=== PATIENT | female | born 1965 | race Caucasian/White ===

== ENCOUNTER 2019-03-10 02:19 | Emergency (ER) | payer OTHER ==
[~2019-03-10] VITALS: Ht 157 cm; Wt 124.0 kg
[2019-03-10 02:33] LABS: BASOPHILS # (AUTO) 0.1 10^3/uL (0.0-0.1); BASOPHILS % (AUTO) 1 % (0-10); EOSINOPHILS # (AUTO) 0.3 10^3/uL (0.0-0.3); EOSINOPHILS % (AUTO) 3 % (0-10); HEMATOCRIT 43 % (35-52); HEMOGLOBIN 13.2 G/DL (11.5-16.0); LYMPHOCYTES # (AUTO) 3.9 X 10^3 (1.0-4.0); LYMPHOCYTES % (AUTO) 33 % (12-44); MEAN CORPUSCULAR HEMOGLOBIN 26 PG (25-34); MEAN CORPUSCULAR HGB CONC 31 G/DL (32-36); MEAN CORPUSCULAR VOLUME 84 FL (80-99); MEAN PLATELET VOLUME 9.2 FL (7.4-10.4); MONOCYTES # (AUTO) 0.8 X 10^3 (0.0-1.0); MONOCYTES % (AUTO) 6 % (0-12); NEUTROPHILS # (AUTO) 6.9 X 10^3 (1.8-7.8); NEUTROPHILS % (AUTO) 57 % (42-75); PLATELET COUNT 428 10^3/uL (130-400); RED CELL DISTRIBUTION WIDTH 15.9 % (10.0-14.5)
[2019-03-10] MEDS ORDERED: morphine INJ 10 MG/ML 1ML (SYR OR VIAL) IVP STA ×2 (02:41→04:01)
[2019-03-10] MEDS ORDERED: HEParin DRIP 25000 UNIT/500ML 500 ML IV STA (02:42)
[2019-03-10] MEDS ORDERED: NITROGLYCERIN 2% OINT 1 GM UNIT DOSE PACKET TOP ONE (02:45)
[2019-03-10] MEDS ORDERED: meTOprolol 5 MG/5 ML (LOPRESSOR) VIAL IV ONE (02:45)
[2019-03-10 02:51] LABS: CARBON DIOXIDE 25 MMOL/L (21-32); CHLORIDE 102 MMOL/L (98-107); POTASSIUM 3.9 MMOL/L (3.6-5.0); SODIUM 140 MMOL/L (135-145)
[2019-03-10 02:52] LABS: ALANINE AMINOTRANSFERASE 20 U/L (0-55); ALBUMIN 3.8 GM/DL (3.2-4.5); ALKALINE PHOSPHATASE 109 U/L (40-136); BILIRUBIN,TOTAL < 0.2 MG/DL (0.1-1.0); BUN/CREATININE RATIO 13; CREATININE SERUM 0.86 MG/DL (0.60-1.30); GFR ESTIMATED > 60; GLUCOSE 104 MG/DL (70-105)
--- NOTE | 2019-03-10 02:52 | ED Cardiac General ---
History of Present Illness General Chief Complaint: Chest Pain Stated Complaint: CHEST PAIN Nursing Triage Note: PT COMPLAINING OF CHEST PAIN THAT RADIATES DOWN BOTH ARMS. 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 There are no modifying factors. She took 4 baby aspirin prior to arrival. Pain is similar to that experienced with an MD 2 years ago. She had her right coronary artery stented in [facility]. She took Plavix for a year but finished that course. She is supposed to take losartan for blood pressure but does not. She continues to smoke. Allergies and Home Medications Allergies Coded Allergies: amoxicillin (Verified Allergy, Unknown, 03/10/19) clavulanic acid (Verified Allergy, Unknown, 03/10/19) Patient Home Medication List Home Medication List Reviewed: Yes Review of Systems Review of Systems Constitutional: no symptoms reported EENTM: No Symptoms Reported Respiratory: Shortness of Air Cardiovascular: Chest Pain Gastrointestinal: No Symptoms Reported Genitourinary: No Symptoms Reported Musculoskeletal: no symptoms reported; No back pain Skin: no symptoms reported All Other Systems Reviewed Negative Unless Noted: Yes Past Nalzmdr-Selego-Izfiyj Hx Patient Social History Recent Foreign Travel: No Contact w/Someone Who Travel: No Recent Infectious Disease Expo: No Recent Hopitalizations: No Physical Abuse: No Sexual Abuse: No Mistreated: No Past Medical History Surgeries: Yes Section, Coronary Stent Physical Exam Vital Signs Vital Signs - First Documented 03/10/19 02:19 Temp 36.5 Pulse 100 Resp 22 B/P (MAP) 192/101 (131) Pulse Ox 97 O2 Delivery Room Air Capillary Refill : Less Than 3 Seconds Height, Weight, BMI Height: '" Weight: lbs. oz. kg; 50.00 BMI Method: General Appearance: WD/WN, Moderate Distress, Obese HEENT: PERRL/EOMI, Pharynx Normal Neck: Supple Respiratory: Lungs Clear, Normal Breath Sounds Cardiovascular: Regular Rate, Rhythm, No Edema Gastrointestinal: Non Tender, Soft Extremity: Normal Inspection Neurologic/Psychiatric: Alert, Oriented x3, No Motor/Sensory Deficits, Normal Mood/Affect Skin: Normal Color, Warm/Dry Progress/Results/Core Measures Results/Orders Lab Results Laboratory Tests Test 03/10/19 02:22 Range/Units White Blood Count 12.0 H 4.3-11.0 10^3/uL Red Blood Count 5.08 4.35-5.85 10^6/uL Hemoglobin 13.2 11.5-16.0 G/DL Hematocrit 43 35-52 % Mean Corpuscular Volume 84 80-99 FL Mean Corpuscular Hemoglobin 26 25-34 PG Mean Corpuscular Hemoglobin Concent 31 L 32-36 G/DL Red Cell Distribution Width 15.9 H 10.0-14.5 % Platelet Count 428 H 130-400 10^3/uL Mean Platelet Volume 9.2 7.4-10.4 FL Neutrophils (%) (Auto) 57 42-75 % Lymphocytes (%) (Auto) 33 12-44 % Monocytes (%) (Auto) 6 0-12 % Eosinophils (%) (Auto) 3 0-10 % Basophils (%) (Auto) 1 0-10 % Neutrophils # (Auto) 6.9 1.8-7.8 X 10^3 Lymphocytes # (Auto) 3.9 1.0-4.0 X 10^3 Monocytes # (Auto) 0.8 0.0-1.0 X 10^3 Eosinophils # (Auto) 0.3 0.0-0.3 10^3/uL Basophils # (Auto) 0.1 0.0-0.1 10^3/uL Prothrombin Time 13.0 12.2-14.7 SEC INR Comment 1.0 0.8-1.4 Activated Partial Thromboplast Time 26 24-35 SEC Sodium Level 140 135-145 MMOL/L Potassium Level 3.9 3.6-5.0 MMOL/L Chloride Level 102 98-107 MMOL/L Carbon Dioxide Level 25 21-32 MMOL/L Anion Gap 13 5-14 MMOL/L Blood Urea Nitrogen 11 7-18 MG/DL Creatinine 0.86 0.60-1.30 MG/DL Estimat Glomerular Filtration Rate > 60 BUN/Creatinine Ratio 13 Glucose Level 104 70-105 MG/DL Calcium Level 9.0 8.5-10.1 MG/DL Corrected Calcium 9.2 8.5-10.1 MG/DL Magnesium Level 2.0 1.6-2.4 MG/DL Total Bilirubin < 0.2 0.1-1.0 MG/DL Aspartate Amino Transf (AST/SGOT) 19 5-34 U/L Alanine Aminotransferase (ALT/SGPT) 20 0-55 U/L Alkaline Phosphatase 109 40-136 U/L Myoglobin 23.1 10.0-92.0 NG/ML Troponin I < 0.30 <0.30 NG/ML Pro-B-Type Natriuretic Peptide 217.6 H <75.0 PG/ML Total Protein 7.0 6.4-8.2 GM/DL Albumin 3.8 3.2-4.5 GM/DL My Orders Orders - MUSA CARRERA MD Cbc With Automated Diff (03/10/19 02:23) Magnesium (03/10/19 02:23) Chest 1 View Ap/Pa Only (03/10/19 02:23) Ekg Tracing (03/10/19 02:23) Comprehensive Metabolic Panel (03/10/19 02:23) Protime With Inr (03/10/19 02:23) Partial Thromboplastin Time (03/10/19 02:23) O2 (03/10/19 02:23) Monitor-Rhythm Ecg Trace Only (03/10/19 02:23) Ed Iv/Invasive Line Start (03/10/19 02:23) Troponin I Fs (03/10/19 02:23) Nitroglycerin Ointment (Nitrobid Ointme (03/10/19 02:45) Metoprolol Tartrate Injection (Lopressor (03/10/19 02:45) Morphine Injection (Morphine Injection (03/10/19 02:41) O2 (03/10/19 02:42) Lipid Panel (03/11/19 06:00) Ed Iv/Invasive Line Start (03/10/19 02:42) Heparin Injection (Heparin Injection) (03/10/19 02:45) Heparin Injection (Heparin Injection) (03/10/19 02:45) Heparin Drip 46992 Unit/500ml (Heparin (03/10/19 02:42) Myoglobin Serum (03/10/19 02:22) Heparin (Bolus Per Protocol) (Heparin (B (03/10/19 02:53) Ondansetron Injection (Zofran Injectio (03/10/19 02:54) Heparin (Bolus Per Protocol) (Heparin (B (03/10/19 03:00) Ondansetron Injection (Zofran Injectio (03/10/19 03:15) Labetalol Injection (Normodyne Injection (03/10/19 03:30) Probnp Fs (03/10/19 02:22) Medications Given in ED Current Medications Medications Dose Ordered Sig/Laila Route Start Time Stop Time Status Last Admin Dose Admin Heparin Sodium (Porcine) 5,000 unit UD ONCE IV 03/10/19 03:00 03/10/19 03:02 DC 03/10/19 03:08 5,000 UNIT Labetalol HCl 20 mg ONCE ONCE IV 03/10/19 03:30 03/10/19 03:31 DC 03/10/19 03:20 20 MG Metoprolol Tartrate 10 mg ONCE ONCE IV 03/10/19 02:45 03/10/19 02:46 DC 03/10/19 02:47 10 MG Nitroglycerin 1 inch ONCE ONCE TOP 03/10/19 02:45 03/10/19 02:46 DC 03/10/19 02:47 1 INCH Ondansetron HCl 4 mg ONCE ONCE IVP 03/10/19 03:15 03/10/19 03:16 DC 03/10/19 03:14 4 MG Vital Signs/I&O 03/10/19 02:19 Temp 36.5 Pulse 100 Resp 22 B/P (MAP) 192/101 (131) Pulse Ox 97 O2 Delivery Room Air Blood Pressure Mean: 131 Progress Progress Note : Time: 03:26 Progress Note Feels better after medicine. Pain now 2 out of 10. Blood pressure down to 170/100. Heart rate 70s. Attempted to admit [facility] but they have no beds. Patient then requested only at the [facility] where she had her heart catheter 2 years ago. I spoke to the nursing wastewater treatment plant supervisor who is going to put me in touch with the hospitalist. This was at 315 a.m. Initial ECG Impression Date: Mar 10, 2019 Initial ECG Impression Time: 02:40 Initial ECG Rate: 100 Initial ECG Rhythm: Normal Sinus Initial ECG Intervals: Normal Initial ECG Impression: Nonspecific Changes Initial ECG Comparisson: No Previous ECG Available Comment Main EKG machine was not working accurately. Nurses used older EKG machine. This accounts for the patient discrepancy of June 16, 1996 percent on EKG. EKG tracing was accurate however Departure Impression Primary Impression: Chest pain Additional Impression: Hypertensive crisis Disposition: XFER SHT-TRM HOSP Condition: Improved Admissions Decision to Admit Reason: Admit from ER (General) Decision to Admit/Date: Mar 10, 2019 Time/Decision to Admit Time: 02:52 Transfer Transfer Reason: Exceeds level of care Time Spoke to Accepting Phy: 03:12 Transfer Progress Notes I [facility] MUSA CARRERA MD Mar 10, 2019 02:52
[2019-03-10] MEDS ORDERED: HEParin 1000 UNIT/ML (10ML VIAL) FOR BOLUS ONE (02:53)
[2019-03-10] MEDS ORDERED: ONDANSETRON 4 MG/2 ML (SDV) Z0FRAN ONE (02:54)
[2019-03-10] MEDS ORDERED: HEParin 1000 UNIT/ML (10ML VIAL) FOR BOLUS IV ONE (03:00)
[2019-03-10] MEDS ORDERED: ONDANSETRON 4 MG/2 ML (SDV) Z0FRAN IVP ONE (03:15)
[2019-03-10] MEDS ORDERED: LABETALOL HCL 20 MG/4 ML VIAL IV ONE (03:30)
[2019-03-10 03:46] VITALS: BP 166/98
--- NOTE | 2019-03-10 06:41 | Diagnostic Imaging Report ---
INDICATION: Chest pain. Portable chest 2:41 AM Heart size and pulmonary vascularity are normal. Lungs are clear. There are no effusions or pneumothoraces. IMPRESSION: Negative chest. Dictated by: Dictated on workstation # [id number]
== END 2019-03-10 04:15 | disposition short-term general hospital (02) ==
LOC: ER FS 02:22
DX: R07.9 Chest pain, unspecified (principal); I16.9 Hypertensive crisis, unspecified; I25.2 Old myocardial infarction; Z95.5 Presence of coronary angioplasty implant and graft; Z88.0 Allergy status to penicillin; Z88.1 Allergy status to other antibiotic agents
CPT/HCPCS: 36415; 71045; 80053; 83735; 83874; 83880; 84484; 85025; 85610; 85730; 93041; 96365; 96375; 96376

== ENCOUNTER 2020-06-08 03:28 | Emergency (ER) | payer SELFPAY ==
[~2020-06-08] VITALS: Ht 165 cm; Wt 106.6 kg
[2020-06-08] MEDS ORDERED: RT-ALBUTEROL/IPRATROPIUM 3 ML (DUONEB) VIAL ONE (03:47)
[2020-06-08 03:48] LABS: HEMATOCRIT 39 % (35-52); HEMOGLOBIN 11.7 G/DL (11.5-16.0); MEAN CORPUSCULAR HEMOGLOBIN 23 PG (25-34); MEAN CORPUSCULAR HGB CONC 30 G/DL (32-36); MEAN CORPUSCULAR VOLUME 76 FL (80-99); WHITE BLOOD COUNT 12.1 10^3/uL (4.3-11.0)
[2020-06-08 03:49] LABS: BASOPHILS # (AUTO) 0.1 10^3/uL (0.0-0.1); BASOPHILS % (AUTO) 1 % (0-10); EOSINOPHILS # (AUTO) 0.4 10^3/uL (0.0-0.3); EOSINOPHILS % (AUTO) 3 % (0-10); LYMPHOCYTES # (AUTO) 3.5 X 10^3 (1.0-4.0); LYMPHOCYTES % (AUTO) 29 % (12-44); MEAN PLATELET VOLUME 9.2 FL (7.4-10.4); MONOCYTES # (AUTO) 0.8 X 10^3 (0.0-1.0); MONOCYTES % (AUTO) 7 % (0-12); NEUTROPHILS # (AUTO) 7.3 X 10^3 (1.8-7.8); NEUTROPHILS % (AUTO) 61 % (42-75); PLATELET COUNT 496 10^3/uL (130-400)
[2020-06-08] MEDS: NITROGLYCERIN 0.4 MG SL TABS BTL 25'S SL PRN ×2 (03:51→04:44)
--- NOTE | 2020-06-08 03:51 | ED Chest Pain ---
General Chief Complaint: Chest Pain Stated Complaint: CHEST PAIN Source: patient Exam Limitations: no limitations (MARSHA GATES MD) History of Present Illness Date Seen by Provider: Jun 08, 2020 Time Seen by Provider: 03:35 Initial Comments Patient is a 54-year-old female who presents to the emergency department today with a chief complaint of substernal chest pain. Patient states that her chest pain woke her from sleep approximately 45 minutes prior to arrival. Patient states that she has shortness of breath with it but denies nausea and diaphoresis. Patient states the pain is similar to when she has had an "NSTEMI" in the past. Patient last had a heart attack in March 2019 and then a heart attack 2 years before that in March. Patient states the pain radiates slightly up into her right neck. She is not a diabetic. She does take medications for high blood pressure and Plavix. She states she has had previous DVT in the right lower extremity as well as a clot in one of her stents. Patient denies any recent illnesses such as fever, chills cough or congestion. No nausea vomiting or diarrhea. No urinary complaints. She states she was under a little bit of increased stress this evening as she received the template for her 's carinatone who in February of last year. She states that initially she thought she was just having a panic attack. She currently rates the pain at "a 7 or an 8". All other review of systems reviewed and negative except as stated above. Timing/Duration: 1 hour (45 minutes) Severity/Quality: moderate, aching Location: substernal Radiation: neck (Right side) Activities at Onset: rest (Sleeping) Prior CP/Workup: cardiac cath, heart attack ASA po MICA SPREADER: No NTG SL MICA SPREADER: No Associated Symptoms: shortness of breath (MARSHA GATES MD) Allergies and Home Medications Allergies Coded Allergies: amoxicillin (Verified Allergy, Unknown, 03/10/19) clavulanic acid (Verified Allergy, Unknown, 03/10/19) Home Medications Albuterol Sulfate 1 Puff Puff, 2 PUFF IH Q4H 1 PUFF = 90 MCG Prescribed by: ELLIS NOLAN on 06/08/20 0823 Nitroglycerin 0.4 Mg Tab.subl, 0.4 MG SL UD PRN for CHEST PAIN Prescribed by: ELLIS NOLAN on 06/08/20 0823 Patient Home Medication List Home Medication List Reviewed: Yes (MARSHA GATES MD) Review of Systems Review of Systems Constitutional: see HPI EENTM: No Symptoms Reported Respiratory: SOA With Exertion, SOA at Rest Cardiovascular: Chest Pain Gastrointestinal: No Symptoms Reported Genitourinary: No Symptoms Reported Musculoskeletal: no symptoms reported Skin: no symptoms reported Psychiatric/Neurological: Anxiety (MARSHA GATES MD) All Other Systems Reviewed Negative Unless Noted: Yes (MARSHA GATES MD) Past Rwvcjsp-Kspbam-Mjfrzf Hx Patient Social History Alcohol Use: Denies Use Smoking Status: Current Everyday Smoker Type Used: Cigarettes 2nd Hand Smoke Exposure: No Recent Hopitalizations: No (MARSHA GATES MD) Past Medical History Surgeries: Yes Angioplasty, Section, Coronary Stent Respiratory: Yes Pulmonary Embolism, COPD Cardiac: Yes Hypertension Neurological: No Genitourinary: No Gastrointestinal: No Musculoskeletal: No Endocrine: No HEENT: No Cancer: No Psychosocial: No Integumentary: No Blood Disorders: No (MARSHA GATES MD) Physical Exam Vital Signs Vital Signs - First Documented 06/08/20 06/08/20 03:41 04:37 Temp 36.8 Pulse 90 Resp 20 B/P (MAP) 191/ Pulse Ox 95 O2 Delivery Room Air O2 Flow Rate 2.00 (LUCIANSTELLIS DUMAS DO) Vital Signs Capillary Refill : (MARSHA GATES MD) Height, Weight, BMI Height: '" Weight: lbs. oz. kg; 50.00 BMI Method: General Appearance: WD/WN, Anxious, Mild Distress HEENT: PERRL/EOMI Neck: Normal Inspection Respiratory: No Accessory Muscle Use, Wheezing (Expiratory wheezing noted anteriorly in both upper lung bella), Other (Tachypnea) Cardiovascular: Regular Rate, Rhythm, Normal Peripheral Pulses Gastrointestinal: Normal Bowel Sounds, Non Tender, Soft Extremity: Normal Capillary Refill, Normal Inspection, Normal Range of Motion, Non Tender, No Calf Tenderness, No Pedal Edema Neurologic/Psychiatric: Alert, Oriented x3, No Motor/Sensory Deficits, Normal Mood/Affect Skin: Normal Color, Warm/Dry (MARSHA GATES MD) Progress/Results/Core Measures Results/Orders Lab Results Laboratory Tests Test 06/08/20 03:15 06/08/20 07:25 Range/Units White Blood Count 12.1 H 4.3-11.0 10^3/uL Red Blood Count 5.16 4.35-5.85 10^6/uL Hemoglobin 11.7 11.5-16.0 G/DL Hematocrit 39 35-52 % Mean Corpuscular Volume 76 L 80-99 FL Mean Corpuscular Hemoglobin 23 L 25-34 PG Mean Corpuscular Hemoglobin Concent 30 L 32-36 G/DL Red Cell Distribution Width 19.5 H 10.0-14.5 % Platelet Count 496 H 130-400 10^3/uL Mean Platelet Volume 9.2 7.4-10.4 FL Immature Granulocyte % (Auto) 0 % Neutrophils (%) (Auto) 61 42-75 % Lymphocytes (%) (Auto) 29 12-44 % Monocytes (%) (Auto) 7 0-12 % Eosinophils (%) (Auto) 3 0-10 % Basophils (%) (Auto) 1 0-10 % Neutrophils # (Auto) 7.3 1.8-7.8 X 10^3 Lymphocytes # (Auto) 3.5 1.0-4.0 X 10^3 Monocytes # (Auto) 0.8 0.0-1.0 X 10^3 Eosinophils # (Auto) 0.4 H 0.0-0.3 10^3/uL Basophils # (Auto) 0.1 0.0-0.1 10^3/uL Immature Granulocyte # (Auto) 0.0 0.0-0.1 10^3/uL Sodium Level 137 135-145 MMOL/L Potassium Level 4.1 3.6-5.0 MMOL/L Chloride Level 102 98-107 MMOL/L Carbon Dioxide Level 26 21-32 MMOL/L Anion Gap 9 5-14 MMOL/L Blood Urea Nitrogen 14 7-18 MG/DL Creatinine 0.83 0.60-1.30 MG/DL Estimat Glomerular Filtration Rate > 60 BUN/Creatinine Ratio 17 Glucose Level 139 H 70-105 MG/DL Calcium Level 8.8 8.5-10.1 MG/DL Total Creatine Kinase 68 29-168 U/L Creatine Kinase MB 1.2 <6.6 NG/ML Troponin I < 0.30 < 0.30 <0.30 NG/ML (ELLIS NOLAN DO) Medications Given in ED Current Medications Medications Dose Ordered Sig/Laila Route Start Time Stop Time Status Last Admin Dose Admin Albuterol/ Ipratropium 3 ml STK-MED ONCE .ROUTE 06/08/20 03:47 06/08/20 03:54 DC 06/08/20 03:55 3 ML Nitroglycerin 0.4 mg PRN PRN SL 06/08/20 03:45 06/08/20 09:04 DC 06/08/20 04:44 0.4 MG (ELLIS NOLAN DO) Vital Signs/I&O 06/08/20 06/08/20 06/08/20 06/08/20 03:41 03:41 04:37 08:30 Temp 36.8 Pulse 90 82 Resp 20 21 B/P (MAP) 191/ 153/73 Pulse Ox 95 96 95 O2 Delivery Room Air Room Air Nasal Cannula Room Air O2 Flow Rate 2.00 (ELLIS NOLAN DO) Progress Progress Note : Time: 04:43 Progress Note Patient reevaluated after basic laboratory studies have been obtained. She states that her pain is "a 3 or a 4" at this point. Patient will be given another nitro. Initial troponin is negative as expected. Patient arrived at about 330 this morning and will need repeat troponin at 730. Patient does not want to be transferred to [place] at this time she would rather wait and see if her labs become abnormal. We will repeat her EKG in the next hour or so. Vital signs are stable. Her breathing is much improved after a DuoNeb treatment. 0521 Second nitro completely alleviated her pain. resting comfortable. BP 130/67 and pulse [address] Nolan at shift change with second troponin pending for 0730 (MARSHA GATES MD) Progress Note : Progress Note Took over this patient at change of shift with pending repeat troponin. HPI reviewed, patient seen and examined. Patient is pain free at this time and has been since receiving nitroglycerin. Repeat troponin negative. Patient still pain-free. Prescription for nitroglycerin as well as albuterol inhaler as patient has chronic wheezing. She does states she is cut down from 2 packs/day to half a pack per day smoking cigarettes. Courage to follow-up with her PCP in 1 week to discuss getting a different mask for her CPAP but she is not using it. Also advised following up with her lead javascript engineer within 1 to 2 weeks. She agrees and expresses understanding. (ELLIS NOLAN DO) Initial ECG Impression Date: Jun 08, 2020 Initial ECG Impression Time: 03:38 Initial ECG Rate: 91 Initial ECG Rhythm: Normal Sinus Initial ECG Intervals: Normal Initial ECG Impression: Nonspecific Changes EKG : EKG Time: 06:36 Rate: 81 Rhythm: Normal Sinus Intervals: Normal ECG Comparisson: Unchanged ECG Impression: Nonspecific Changes (MARSHA GATES MD) Diagnostic Imaging Diagonstic Imaging: Xray Plain Films/CT/US/NM/MRI: chest Comments Chest x-ray shows cardiomegaly, no infiltrates or effusions. Mildly increased pulmonary vascular congestion (MARSHA GATES MD) Departure Impression Primary Impression: Chest pain Qualified Codes: R07.9 - Chest pain, unspecified Disposition: 01 HOME, SELF-CARE Condition: Improved (no chest pain) Departure-Patient Inst. Decision time for Depature: 08:21 (ELLIS NOLAN DO) Referrals: NO,LOCAL PHYSICIAN (PCP/Family) Primary Care Physician Patient Instructions: Chest Pain (DC) Add. Discharge Instructions: Call your Certified Paralegal, Dr Pryor to arrange a follow up appointment in 1 to 2 weeks. RETURN to the nearest ER for any return of chest pain. See your PCP, Dr Flores regarding your breathing problems and poor fitting CPAP mask. All discharge instructions reviewed with patient and/or family. Voiced understanding. Scripts Nitroglycerin (Nitroglycerin) 0.4 Mg Tab.subl 0.4 MG SL UD PRN for CHEST PAIN, #20 TAB Prov: ELLIS NOLAN DO 06/08/20 Albuterol Sulfate (PROAIR HFA) 1 Puff Puff 2 PUFF IH Q4H, #1 PUFF 1 PUFF = 90 MCG Prov: ELLIS NOLAN DO 06/08/20 MARSHA GATES MD Jun 08, 2020 03:50 ELLIS NOLAN DO Jun 08, 2020 08:23
[2020-06-08] MEDS ORDERED: RT-ALBUTEROL/IPRATROPIUM 3 ML (DUONEB) VIAL INH ONE (04:00)
[2020-06-08 04:05] LABS: BUN/CREATININE RATIO 17; CALCIUM 8.8 MG/DL (8.5-10.1); CARBON DIOXIDE 26 MMOL/L (21-32); CHLORIDE 102 MMOL/L (98-107); CREATININE SERUM 0.83 MG/DL (0.60-1.30); GFR ESTIMATED > 60; GLUCOSE 139 MG/DL (70-105); POTASSIUM 4.1 MMOL/L (3.6-5.0); SODIUM 137 MMOL/L (135-145)
--- NOTE | 2020-06-08 07:50 | Diagnostic Imaging Report ---
HISTORY: Chest pain COMPARISON: 03/10/2019 TECHNIQUE: Frontal view of the chest FINDINGS: Lung volumes are normal. There is haziness in the lung bases which is thought to be due to the overlying soft tissue. No definite consolidation is seen. There is no pleural effusion or pneumothorax. The cardiac silhouette is stable in size. IMPRESSION: 1. No acute pulmonary abnormality is seen. Dictated by: Dictated on workstation # [id number]
[2020-06-08] MEDS ORDERED: NITR0.4T39 SL (08:23)
[2020-06-08] MEDS ORDERED: RT-ALBUINH IH (08:23)
[2020-06-08 08:30] VITALS: BP 153/73
[2020-06-08] MEDS ORDERED: ASPIRIN 81 MG CHEW (CHILDREN'S ASA) PO SCH (09:00)
[2020-06-08 09:09] LABS: CREATINE KINASE MB 1.2 NG/ML (<6.6)
== END 2020-06-08 08:30 | disposition home or self-care (01) ==
LOC: EDUNIT# 03:28 → ER FS 03:33
DX: R07.2 Precordial pain (principal); R06.02 Shortness of breath; R06.2 Wheezing; I10 Essential (primary) hypertension; I25.2 Old myocardial infarction; J44.9 Chronic obstructive pulmonary disease, unspecified; F17.210 Nicotine dependence, cigarettes, uncomplicated; Z86.711 Personal history of pulmonary embolism; Z86.718 Personal history of other venous thrombosis and embolism; Z95.5 Presence of coronary angioplasty implant and graft; Z88.1 Allergy status to other antibiotic agents; Z88.8 Allergy status to other drugs, medicaments and biological substances; Z79.02 Long term (current) use of antithrombotics/antiplatelets; Z79.899 Other long term (current) drug therapy
CPT/HCPCS: 36415; 71045; 80048; 82550; 82553; 84484; 85025; 93005

== ENCOUNTER 2020-07-03 11:59 | Emergency (ER) | payer OTHER ==
[~2020-07-03] VITALS: Ht 154.9 cm; Wt 106.6 kg
[~2020-07-03 11:59] MED LIST: NITR0.4T39 SL; RT-ALBUINH IH
--- NOTE | 2020-07-03 12:08 | ED Cardiac General ---
History of Present Illness General Stated Complaint: CHEST PAIN History of Present Illness Date Seen by Provider: Jul 03, 2020 Time Seen by Provider: 12:03 Initial Comments 54-year-old female with past medical history significant for coronary artery disease presents with onset of chest pain an hour and a half prior to arrival. She took 3 nitroglycerin without relief and stated her pain was still a 10 out of 10. 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 She described it as sharp and in her both right and left chest and shoulders and radiating to her right jaw. Denies recent illness, fever chills, cough or shortness of air. She denies abdominal pain, nausea vomiting. EMS gave morphine in route and on arrival she was pain-free. Allergies and Home Medications Allergies Coded Allergies: amoxicillin (Verified Allergy, Unknown, 03/10/19) clavulanic acid (Verified Allergy, Unknown, 03/10/19) Home Medications Albuterol Sulfate 1 Puff Puff, 2 PUFF IH Q4H 1 PUFF = 90 MCG Prescribed by: ELLIS RAMIREZ on 06/08/20822 Nitroglycerin 0.4 Mg Tab.subl, 0.4 MG SL UD PRN for CHEST PAIN Prescribed by: ELLIS RAMIREZ on 06/08/20822 Patient Home Medication List Home Medication List Reviewed: Yes Review of Systems Review of Systems Constitutional: see HPI; No fever, No malaise, No weakness EENTM: No Symptoms Reported Respiratory: Denies Cough, Denies Shortness of Air, Denies Stridor, Denies Wheezing Cardiovascular: See HPI, Chest Pain (resolved on arrival); Denies Palpitations, Denies Syncope Gastrointestinal: Denies Abdominal Pain, Denies Nausea, Denies Poor Appetite, Denies Vomiting Musculoskeletal: back pain (upper shoulders- resolved); No neck pain; other (Right jaw pain resolved on arrival.) Skin: No change in color Psychiatric/Neurological: Denies Numbness, Denies Paresthesia, Denies Weakness Past Rsjitrn-Mnvbul-Wchjra Hx Past Med/Social Hx: Reviewed Nursing Past Med/Soc Hx Patient Social History Smoking Status: Current Everyday Smoker Type Used: Cigarettes 2nd Hand Smoke Exposure: No Recent Hopitalizations: No Past Medical History Surgeries: Yes Angioplasty, Section, Coronary Stent Respiratory: Yes Pulmonary Embolism, COPD Cardiac: Yes Hypertension Neurological: No Genitourinary: No Gastrointestinal: No Musculoskeletal: No Endocrine: No HEENT: No Cancer: No Psychosocial: No Integumentary: No Blood Disorders: No Physical Exam Vital Signs Vital Signs - First Documented Capillary Refill : Height, Weight, BMI Height: '" Weight: lbs. oz. kg; 39.00 BMI Method: General Appearance: No Apparent Distress, WD/WN HEENT: PERRL/EOMI, Normal ENT Inspection Neck: Normal Inspection, Non Tender, Supple Respiratory: Chest Non Tender, Lungs Clear, Normal Breath Sounds, No Accessory Muscle Use, No Respiratory Distress Cardiovascular: Regular Rate, Rhythm, No Edema, No Gallop, No JVD, Normal Peripheral Pulses Gastrointestinal: Normal Bowel Sounds, No Pulsatile Mass, Non Tender, Soft Extremity: Normal Capillary Refill, Normal Inspection, Non Tender, No Calf Tenderness Neurologic/Psychiatric: Alert, Oriented x3, No Motor/Sensory Deficits, Normal Mood/Affect Skin: Normal Color, Warm/Dry Progress/Results/Core Measures Results/Orders Lab Results Laboratory Tests Test 07/03/20 12:03 07/03/20 13:25 Range/Units White Blood Count 11.6 H 4.3-11.0 10^3/uL Red Blood Count 4.80 4.35-5.85 10^6/uL Hemoglobin 11.0 L 11.5-16.0 G/DL Hematocrit 36 35-52 % Mean Corpuscular Volume 75 L 80-99 FL Mean Corpuscular Hemoglobin 23 L 25-34 PG Mean Corpuscular Hemoglobin Concent 31 L 32-36 G/DL Red Cell Distribution Width 18.7 H 10.0-14.5 % Platelet Count 456 H 130-400 10^3/uL Mean Platelet Volume 9.4 7.4-10.4 FL Immature Granulocyte % (Auto) 0 % Neutrophils (%) (Auto) 61 42-75 % Lymphocytes (%) (Auto) 28 12-44 % Monocytes (%) (Auto) 6 0-12 % Eosinophils (%) (Auto) 3 0-10 % Basophils (%) (Auto) 1 0-10 % Neutrophils # (Auto) 7.1 1.8-7.8 X 10^3 Lymphocytes # (Auto) 3.3 1.0-4.0 X 10^3 Monocytes # (Auto) 0.7 0.0-1.0 X 10^3 Eosinophils # (Auto) 0.3 0.0-0.3 10^3/uL Basophils # (Auto) 0.1 0.0-0.1 10^3/uL Immature Granulocyte # (Auto) 0.0 0.0-0.1 10^3/uL Sodium Level 139 135-145 MMOL/L Potassium Level 4.3 3.6-5.0 MMOL/L Chloride Level 103 98-107 MMOL/L Carbon Dioxide Level 26 21-32 MMOL/L Anion Gap 10 5-14 MMOL/L Blood Urea Nitrogen 21 H 7-18 MG/DL Creatinine 0.85 0.60-1.30 MG/DL Estimat Glomerular Filtration Rate > 60 BUN/Creatinine Ratio 25 Glucose Level 150 H 70-105 MG/DL Calcium Level 9.0 8.5-10.1 MG/DL Corrected Calcium 9.2 8.5-10.1 MG/DL Total Bilirubin 0.2 0.1-1.0 MG/DL Aspartate Amino Transf (AST/SGOT) 13 5-34 U/L Alanine Aminotransferase (ALT/SGPT) 12 0-55 U/L Alkaline Phosphatase 112 40-136 U/L Troponin I < 0.30 < 0.30 <0.30 NG/ML Total Protein 6.6 6.4-8.2 GM/DL Albumin 3.7 3.2-4.5 GM/DL My Orders Orders - ROVENSTELLIS DUMAS DO Ed Iv/Invasive Line Start (07/03/20 12:08) Ekg Tracing (07/03/20 12:08) Chest 1 View Ap/Pa Only (07/03/20 12:08) Cbc With Automated Diff (07/03/20 12:08) Comprehensive Metabolic Panel (07/03/20 12:08) Troponin I Fs (07/03/20 12:08) Troponin I Fs (07/03/20 13:30) Vital Signs/I&O 07/03/20 07/03/20 07/03/20 12:01 12:01 14:00 Temp 36.8 36.8 Pulse 86 78 Resp 18 18 B/P (MAP) 145/79 (101) 152/75 (101) Pulse Ox 98 96 O2 Delivery Room Air Room Air Room Air Progress Progress Note : Progress Note Patient still pain-free since arrival (and given morphine) by EMS. Resting w lights off in room. Explained normal lab and need to repeat troponin. Audibly wheezing at rest, offered a breathing treatment but pt declines, states she doesn't need one. Uneventful ER stay with no return to chest pain. Patient sent home after 2 negative troponins. Advised f/u w PCP and Cardio. Pt agrees and understands Initial ECG Impression Date: Jul 03, 2020 Initial ECG Impression Time: 12:00 Initial ECG Rate: 88 Initial ECG Rhythm: Normal Sinus Initial ECG Intervals: Normal Initial ECG Impression: Normal Initial ECG Comparisson: No Previous ECG Available Comment no ST Change or acute ischemic changes Departure Impression Primary Impression: Chest pain Qualified Codes: R07.9 - Chest pain, unspecified Disposition: HOME, SELF-CARE Condition: Improved Departure-Patient Inst. Decision time for Depature: 13:56 Referrals: JANAY ESTRADA MD (PCP/Family) Primary Care Physician Add. Discharge Instructions: Follow up with your PCP, Dr Estrada in 2 to 3 days for re-evaluation. Call your Trust Mail Clerk to notify them of your episode of chest pain and ER visit with normal labs and EKG Continue your current medications. Follow up in the ER for any recurrence of chest pain. Work/School Note: Work Release Form Date Seen in the Emergency Department: Jul 03, 2020 Return to Work: Jul 04, 2020 Restrictions: No Restrictions ELLIS RAMIREZ DO Jul 03, 2020 12:08
[2020-07-03 12:16] LABS: HEMATOCRIT 36 % (35-52); MEAN CORPUSCULAR HEMOGLOBIN 23 PG (25-34); MEAN CORPUSCULAR HGB CONC 31 G/DL (32-36); MEAN CORPUSCULAR VOLUME 75 FL (80-99); MEAN PLATELET VOLUME 9.4 FL (7.4-10.4); PLATELET COUNT 456 10^3/uL (130-400); WHITE BLOOD COUNT 11.6 10^3/uL (4.3-11.0)
[2020-07-03 12:17] LABS: BASOPHILS # (AUTO) 0.1 10^3/uL (0.0-0.1); BASOPHILS % (AUTO) 1 % (0-10); EOSINOPHILS # (AUTO) 0.3 10^3/uL (0.0-0.3); EOSINOPHILS % (AUTO) 3 % (0-10); LYMPHOCYTES # (AUTO) 3.3 X 10^3 (1.0-4.0); LYMPHOCYTES % (AUTO) 28 % (12-44); MONOCYTES # (AUTO) 0.7 X 10^3 (0.0-1.0); MONOCYTES % (AUTO) 6 % (0-12); NEUTROPHILS # (AUTO) 7.1 X 10^3 (1.8-7.8); NEUTROPHILS % (AUTO) 61 % (42-75)
--- NOTE | 2020-07-03 12:30 | Diagnostic Imaging Report ---
HISTORY: Chest pain COMPARISON: 06/08/2020 TECHNIQUE: Frontal view of the chest FINDINGS: Lung volumes are large. Haziness over the lung bases is thought to be due to overlying soft tissue and appears symmetric. No definite consolidation is seen. There is no pleural effusion or pneumothorax. The cardiac silhouette is normal in size. IMPRESSION: 1. No acute pulmonary abnormality seen. Dictated by: Dictated on workstation # [id number]
[2020-07-03 12:44] LABS: ALANINE AMINOTRANSFERASE 12 U/L (0-55); ALKALINE PHOSPHATASE 112 U/L (40-136); BILIRUBIN,TOTAL 0.2 MG/DL (0.1-1.0); BUN/CREATININE RATIO 25; CARBON DIOXIDE 26 MMOL/L (21-32); CHLORIDE 103 MMOL/L (98-107); CREATININE SERUM 0.85 MG/DL (0.60-1.30); GFR ESTIMATED > 60; GLUCOSE 150 MG/DL (70-105); POTASSIUM 4.3 MMOL/L (3.6-5.0); SODIUM 139 MMOL/L (135-145); TOTAL PROTEIN 6.6 GM/DL (6.4-8.2)
[2020-07-03 12:45] LABS: ALBUMIN 3.7 GM/DL (3.2-4.5)
[2020-07-03 14:00] VITALS: BP 152/75
== END 2020-07-03 14:00 | disposition home or self-care (01) ==
LOC: EDUNIT# 12:01 → ER FS 12:02
DX: R07.9 Chest pain, unspecified (principal); I10 Essential (primary) hypertension; J44.9 Chronic obstructive pulmonary disease, unspecified; F17.210 Nicotine dependence, cigarettes, uncomplicated; Z88.1 Allergy status to other antibiotic agents
CPT/HCPCS: 36415; 71045; 80053; 84484; 85025; 93005

== ENCOUNTER 2021-05-06 17:55 | Emergency (ER) | payer OTHER ==
[~2021-05-06] VITALS: Ht 154 cm; Wt 94.8 kg
[2021-05-06 17:56] VITALS: BP 123/89
[2021-05-06 18:25] LABS: BASOPHILS # (AUTO) 0.1 10^3/uL (0.0-0.1); BASOPHILS % (AUTO) 1 % (0-10); EOSINOPHILS # (AUTO) 0.3 10^3/uL (0.0-0.3); EOSINOPHILS % (AUTO) 3 % (0-10); HEMATOCRIT 42 % (35-52); HEMOGLOBIN 13.4 g/dL (11.5-16.0); LYMPHOCYTES # (AUTO) 3.3 10^3/uL (1.0-4.0); LYMPHOCYTES % (AUTO) 30 % (12-44); MEAN CORPUSCULAR HEMOGLOBIN 27 pg (25-34); MEAN CORPUSCULAR HGB CONC 32 g/dL (32-36); MEAN CORPUSCULAR VOLUME 84 fL (80-99); MONOCYTES # (AUTO) 0.7 10^3/uL (0.0-1.0); MONOCYTES % (AUTO) 6 % (0-12); NEUTROPHILS # (AUTO) 6.7 10^3/uL (1.8-7.8); NEUTROPHILS % (AUTO) 60 % (42-75); PLATELET COUNT 385 10^3/uL (130-400); WHITE BLOOD COUNT 11.1 10^3/uL (4.3-11.0)
[2021-05-06] MEDS ORDERED: ONDANSETRON 4 MG/2 ML (SDV) Z0FRAN IVP ONE (18:30)
[2021-05-06 18:38] LABS: ALBUMIN 3.9 GM/DL (3.2-4.5); POTASSIUM 4.2 MMOL/L (3.6-5.0); PROTHROMBIN TIME PATIENT 13.2 SEC (12.2-14.7)
[2021-05-06 18:40] LABS: CALCIUM 9.3 MG/DL (8.5-10.1)
[2021-05-06 18:41] LABS: TOTAL PROTEIN 7.1 GM/DL (6.4-8.2)
--- NOTE | 2021-05-06 18:41 | ED Chest Pain ---
General Chief Complaint: Chest Pain Stated Complaint: CHEST PAIN Nursing Triage Note: PT ARRIVES TO ER VIA EMS FROM HOME. 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 PT TOOK ASA 324 MG PRIOR TO EMS ARRIVAL, PT WAS GIVEN NITRO X 3 PER EMS, REPORTS SLIGHT RELIEF OF SYMPTOMS. PT REPORTS HX OF PREVIOUS PR, REPORTS 4 NSTEMI'S IN PAST. 5 TOTAL STENTS PLACED PREVIOUSLY. Source: patient Exam Limitations: no limitations History of Present Illness Date Seen by Provider: May 06, 2021 Time Seen by Provider: 18:04 Initial Comments This 55-year-old woman presents to the emergency room with complaints of central chest pain and pressure described as someone sitting on her chest that started around 1630. She had walked to a convenient store and the pain started when she arrived back home. She took 4 baby aspirin and pain did not improve. The pressure was severe at first rated as 9 out of 10. After 3 nitroglycerin administered by EMS pain is now 5-6/10. The pain comes in waves intermittently. Patient states she has had 4 NSTEMI episodes and has 5 stents in her RCA. She sees a parts sales advisor in [place] named Dr. Pryor at [facility]. She states this chest pain feels like prior episodes of angina. She reports compliance with her Plavix but she has not been taking aspirin. She continues to smoke. Pain now is described as more of a burning sensation. She is nauseated and holding an emesis basin. She had associated lightheadedness and sweats when the pain was more intense. She states she feels warm all over. Her l ast stent was placed in [place] in July 2020. Her primary care provider is Dr. Janay Flores at [facility]. Patient reports her parts sales advisor has instructed her to take both Plavix and aspirin, but she does not take the aspirin because it causes of vaginal bleeding. She states she has been compliant with the Plavix. Allergies and Home Medications Allergies Coded Allergies: amoxicillin (Verified Allergy, Unknown, 03/10/19) clavulanic acid (Verified Allergy, Unknown, 03/10/19) lisinopril (Verified Allergy, Unknown, 05/06/21) Patient Home Medication List Home Medication List Reviewed: Yes Albuterol Sulfate (Proair Hfa) 1 Puff Puff, 2 PUFF IH Q4H Prescribed by: ELLIS RAMIREZ on 06/08/20822 Nitroglycerin (Nitroglycerin) 0.4 Mg Tab.subl, 0.4 MG SL UD PRN for CHEST PAIN Prescribed by: ELLIS RAMIREZ on 06/08/20822 Review of Systems Review of Systems Constitutional: see HPI EENTM: No Symptoms Reported Respiratory: See HPI Cardiovascular: See HPI Gastrointestinal: No Symptoms Reported Genitourinary: No Symptoms Reported Musculoskeletal: no symptoms reported Skin: no symptoms reported Psychiatric/Neurological: No Symptoms Reported Endocrine: No Symptoms Reported Hematologic/Lymphatic: No Symptoms Reported Past Cvebhav-Lnylor-Glsukx Hx Patient Social History Tobacco Use?: Yes Tobacco type used: Cigarettes Smoking Status: Current Someday Smoker Use of E-Cig and/or Vaping dev: No Substance use?: No Alcohol Use?: No Pt feels they are or have been: No Immunizations Up To Date First/Initial COVID19 Vaccinat: [employer] Second COVID19 Vaccination Edgardo: [facility] COVID19 Vaccine Resident Physician: Smithers Avanza Seasonal Allergies Seasonal Allergies: No Past Medical History Surgeries: Yes Abdominal (Tubal ), Angioplasty, Section, Coronary Stent, Orthopedic (Plastic surgery on the shoulder after dog bite age 5) Respiratory: Yes Pulmonary Embolism, COPD Cardiac: Yes Coronary Artery Disease, Deep Vein Thrombosis, Heart Attack, Hypertension Neurological: No : No Genitourinary: No Gastrointestinal: No Musculoskeletal: No Endocrine: No HEENT: No Cancer: No Psychosocial: No Integumentary: No Blood Disorders: Yes (Thrombocytosis and microcytosis of RBCs by stated history) Physical Exam Vital Signs Vital Signs - First Documented 05/06/21 05/06/21 17:56 18:45 Temp 36.3 Pulse 77 Resp 20 B/P (MAP) 123/89 (100) Pulse Ox 95 O2 Delivery Room Air Capillary Refill : Height, Weight, BMI Height: '" Weight: lbs. oz. 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 Norm as Tested Skin: Normal Color, Warm/Dry Progress/Results/Core Measures Results/Orders Lab Results Laboratory Tests Test 05/06/21 18:09 05/06/21 20:35 Range/Units White Blood Count 11.1 H 4.3-11.0 10^3/uL Red Blood Count 5.01 3.80-5.11 10^6/uL Hemoglobin 13.4 11.5-16.0 g/dL Hematocrit 42 35-52 % Mean Corpuscular Volume 84 80-99 fL Mean Corpuscular Hemoglobin 27 25-34 pg Mean Corpuscular Hemoglobin Concent 32 32-36 g/dL Red Cell Distribution Width 18.4 H 10.0-14.5 % Platelet Count 385 130-400 10^3/uL Mean Platelet Volume 10.0 9.0-12.2 fL Immature Granulocyte % (Auto) 1 % Neutrophils (%) (Auto) 60 42-75 % Lymphocytes (%) (Auto) 30 12-44 % Monocytes (%) (Auto) 6 0-12 % Eosinophils (%) (Auto) 3 0-10 % Basophils (%) (Auto) 1 0-10 % Neutrophils # (Auto) 6.7 1.8-7.8 10^3/uL Lymphocytes # (Auto) 3.3 1.0-4.0 10^3/uL Monocytes # (Auto) 0.7 0.0-1.0 10^3/uL Eosinophils # (Auto) 0.3 0.0-0.3 10^3/uL Basophils # (Auto) 0.1 0.0-0.1 10^3/uL Immature Granulocyte # (Auto) 0.1 0.0-0.1 10^3/uL Prothrombin Time 13.2 12.2-14.7 SEC INR Comment 1.0 0.8-1.4 Activated Partial Thromboplast Time 30 24-35 SEC D-Dimer 0.42 0.00-0.49 UG/ML Sodium Level 140 135-145 MMOL/L Potassium Level 4.2 3.6-5.0 MMOL/L Chloride Level 105 98-107 MMOL/L Carbon Dioxide Level 22 21-32 MMOL/L Anion Gap 13 5-14 MMOL/L Blood Urea Nitrogen 13 7-18 MG/DL Creatinine 0.92 0.60-1.30 MG/DL Estimat Glomerular Filtration Rate 73 BUN/Creatinine Ratio 14 Glucose Level 114 H 70-105 MG/DL Calcium Level 9.3 8.5-10.1 MG/DL Corrected Calcium 9.4 8.5-10.1 MG/DL Magnesium Level 1.9 1.6-2.4 MG/DL Total Bilirubin 0.2 0.1-1.0 MG/DL Aspartate Amino Transf (AST/SGOT) 15 5-34 U/L Alanine Aminotransferase (ALT/SGPT) 15 0-55 U/L Alkaline Phosphatase 99 40-136 U/L Myoglobin 32.4 10.0-92.0 NG/ML Troponin I < 0.028 < 0.028 <0.028 NG/ML Total Protein 7.1 6.4-8.2 GM/DL Albumin 3.9 3.2-4.5 GM/DL My Orders Orders - VLADIMIR SHULTZ MD Cbc With Automated Diff (05/06/21 18:04) Magnesium (05/06/21 18:04) Chest 1 View, Ap/Pa Only (05/06/21 18:04) Ekg Tracing (05/06/21 18:04) Comprehensive Metabolic Panel (05/06/21 18:04) Myoglobin Serum (05/06/21 18:04) Protime With Inr (05/06/21 18:04) Partial Thromboplastin Time (05/06/21 18:04) O2 (05/06/21 18:04) Monitor-Rhythm Ecg Trace Only (05/06/21 18:04) Lipid Panel (05/07/21 06:00) Ed Iv/Invasive Line Start (05/06/21 18:04) Troponin I Rubin (05/06/21 18:04) Ondansetron Injection (Zofran Injectio (05/06/21 18:30) Troponin I Sullivan (05/06/21 20:30) Lidocaine 2% Viscous 15 Ml (Xylocaine Vi (05/06/21 19:00) Antacid Suspension (Mylanta Suspension (05/06/21 19:00) Famotidine Injection (Pepcid Injection) (05/06/21 19:00) Fibrin Degradation Products (05/06/21 19:16) Ekg Tracing (05/06/21 20:37) Medications Given in ED Current Medications Medications Dose Ordered Sig/Laila Route Start Time Stop Time Status Last Admin Dose Admin Al Hydrox/Mg Hydrox/Simethicone 30 ml ONCE ONCE PO 05/06/21 19:00 05/06/21 19:01 DC 05/06/21 19:29 30 ML Lidocaine HCl 15 ml ONCE ONCE PO 05/06/21 19:00 05/06/21 19:01 DC 05/06/21 19:30 15 ML Ondansetron HCl 8 mg ONCE ONCE IVP 05/06/21 18:30 05/06/21 18:31 DC 05/06/21 18:26 8 MG Vital Signs/I&O 05/06/21 05/06/21 17:56 18:45 Temp 36.3 Pulse 77 77 Resp 20 18 B/P (MAP) 123/89 (100) 112/73 Pulse Ox 95 O2 Delivery Room Air Room Air Blood Pressure Mean: 100 Progress Progress Note #1: Time: 18:43 Progress Note Patient experienced reduction in pain after nitroglycerin. She took aspirin at home. EKG was unremarkable for ischemic changes. Zofran was given for nausea. Progress Note #2: Time: 19:01 Progress Note Initial work-up is unremarkable. Repeat troponin has been ordered for 4 hours from time of onset which would be 20:30. Patient will receive GI cocktail and Pepcid as a trial treatment for possible GERD. Pain is presently rated as 2/10. Progress Note #3: Time: 20:38 Progress Note GI cocktail and Pepcid had no impact on her pain. She still rates her pain as 2/10. We are repeating EKG and troponin. If she still has discomfort after these are resulted, cardiology will be consulted to help determine disposition. Progress Note #4: Time: 21:57 Progress Note Patient's repeat troponin and EKG were unremarkable. Her chest pain completely resolved and did not return. She was discharged home with return precautions and strict instructions for follow-up with both her parts sales advisor and women's health provider. I am concerned that she has vaginal bleeding if she uses aspirin and asked her to discuss this further with her woman's health provider. Initial ECG Impression Date: May 06, 2021 Initial ECG Impression Time: 17:59 Initial ECG Rate: 79 Initial ECG Rhythm: Normal Sinus Initial ECG Intervals: Normal Initial ECG Impression: Normal Comment Normal sinus rhythm with no ST elevation or depression. No abnormal intervals or axis deviation. EKG : EKG Time: 20:41 Rate: 65 Rhythm: Normal Sinus Intervals: Normal ECG Impression: Normal Comment Normal sinus rhythm with no ST elevation or depression. No abnormal intervals or axis deviation. Diagnostic Imaging Diagonstic Imaging: Xray Plain Films/CT/US/NM/MRI: chest Comments NAME: NATALYA OJEDA [facility] REC#: [id number] PT STATUS: REG ER : 1965 PHYSICIAN: VLADIMIR SHULTZ MD ADMIT DATE: 05/06/21/ER Signed Date of Exam:05/06/21 CHEST 1 VIEW, AP/PA ONLY INDICATION: Chest pain. TIME OF EXAM: 6:33 PM CORRELATION is made with prior chest 07/03/2020. FINDINGS: The heart size is normal. The pulmonary vascularity is unremarkable. The lungs are clear. No infiltrate, effusion or pneumothorax is detected. IMPRESSION: No acute cardiopulmonary process is detected. Dictated by: Dictated on workstation # [id number] Dict: 05/06/211845 Trans: 05/06/211847 [facility] [id number] Interpreted by: JESSICA PEREIRA MD Electronically signed by: JESSICA PEREIRA MD 05/06/211847 Reviewed: Reviewed by Me Departure Impression Primary Impression: Chest pain Qualified Codes: R07.9 - Chest pain, unspecified Disposition: 01 HOME, SELF-CARE Condition: Improved Departure-Patient Inst. Decision time for Depature: 21:50 Referrals: JANAY FLORES MD (PCP/Family) Primary Care Physician Patient Instructions: Chest Pain Add. Discharge Instructions: Contact both your parts sales advisor and your women's health provider tomorrow morning for follow-up instructions. You should not have vaginal bleeding with use of aspirin when you are postmenopausal. This deserves further investigation by your women's health provider. Discuss further evaluation of your chest pain with your parts sales advisor and start with a phone call to arrange follow-up in the morning. Return to the ER if you have returning symptoms of chest pain or other concerning symptoms such as shortness of breath, unusual sweating, lightheadedness, etc. Continue taking Plavix (clopidogrel) as prescribed. Work toward quitting smoking as rapidly as possible. Return to the ER if you have worsening symptoms or other new concerns. All discharge instructions reviewed with patient and/or family. Voiced understanding. Copy Copies To 1: LENARD PRIETO JOSHUA T MD May 06, 2021 18:41
[2021-05-06 18:42] LABS: BILIRUBIN,TOTAL 0.2 MG/DL (0.1-1.0)
[2021-05-06 18:44] LABS: CREATININE SERUM 0.92 MG/DL (0.60-1.30)
[2021-05-06 18:47] LABS: MAGNESIUM 1.9 MG/DL (1.6-2.4)
--- NOTE | 2021-05-06 18:48 | Diagnostic Imaging Report ---
INDICATION: Chest pain. TIME OF EXAM: 6:33 PM CORRELATION is made with prior chest 07/03/2020. FINDINGS: The heart size is normal. The pulmonary vascularity is unremarkable. The lungs are clear. No infiltrate, effusion or pneumothorax is detected. IMPRESSION: No acute cardiopulmonary process is detected. Dictated by: Dictated on workstation # [id number]
[2021-05-06] MEDS ORDERED: ANTACID SUSP 30 ML UDC (MYLANTA) PO ONE (19:00)
[2021-05-06] MEDS ORDERED: FAMOTIDINE 20MG/2ML IV (PEPCID) IV STA (19:00)
[2021-05-06] MEDS ORDERED: LIDOCAINE 2% VISCOUS 15 ML UDC PO ONE (19:00)
== END 2021-05-06 22:24 | disposition home or self-care (01) ==
LOC: EDUNIT# 17:55 → ER 17:56
DX: R07.9 Chest pain, unspecified (principal); E66.9 Obesity, unspecified; F17.210 Nicotine dependence, cigarettes, uncomplicated; Z68.39 Body mass index [BMI] 39.0-39.9, adult; Z79.01 Long term (current) use of anticoagulants
CPT/HCPCS: 36415; 71045; 80053; 83735; 83874; 84484; 85025; 85379; 85610; 85730; 93005; 93041

== ENCOUNTER → 2021-07-31 | Outpatient (CLI) | payer SELFPAY ==
--- NOTE | 2021-07-31 13:18 | Diagnostic Imaging Report ---
INDICATION: Fall with right wrist pain and deformity of the wrist. FINDINGS: 3 views. There is a comminuted impacted fracture of the articulating surface of the radius with the offset along the articulating surface measuring approximately 1 cm. There is a nondisplaced ulnar styloid fracture as well. The carpal bones appear intact. No evidence of osteonecrosis. IMPRESSION: Comminuted impacted fracture involving articulating surface of the distal radius. Nondisplaced ulnar styloid fracture. Dictated by: Dictated on workstation # [id number]
== END ==
LOC: RAD FS 10:37
PROVIDERS: ATTEND Nurse Practitioner
DX: S52.531A Colles' fracture of right radius, initial encounter for closed fracture (principal); W19.XXXA Unspecified fall, initial encounter
CPT/HCPCS: 73110

== ENCOUNTER 2022-02-11 15:04 | Emergency (ER) | payer SELFPAY ==
[~2022-02-11] VITALS: Ht 180 cm; Wt 107.4 kg
[~2022-02-11 15:04] MED LIST changes: +ALBU8.5H6 IH; -RT-ALBUINH IH
--- NOTE | 2022-02-11 15:17 | ED General ---
General Chief Complaint: Chest Pain Stated Complaint: CHEST PAIN/NAUSEA Source of Information: Patient History of Present Illness Date Seen by Provider: Feb 11, 2022 Time Seen by Provider: 15:11 Initial Comments 56-year-old female presenting with complaints of substernal and epigastric pressure for the last hour and a half. She had just eaten prior to the pain onset. She denied any strenuous physical activity. She had been sitting at her desk when the pain came on. She had gone home and tried to lay down to rest but it was not helping with the pain. She has not taken any medication for it. She does have a history of angina as well as prior coronary stenting done with Dr. Pryor from [place]. She has had some mild nausea with this but no vomiting. She thinks that she may be had similar symptoms 1 time that she needed to have a stent placed. She has chronic shortness of breath and wheezing with cough but feels it is no worse than her normal at this point. Timing/Duration: 1-3 Hours Severity: Moderate Modifying Factors: worse with Eating (pain had come on after eating) Associated Systoms: Chest Pain, Cough; No Diaphoresis, No Fever/Chills, No Headaches, No Loss of Appetite, No Malaise; Nausea/Vomiting (nausea but no emesis); No Rash, No Seizure; Shortness of Air (chronic); No Syncope, No Weakness Allergies and Home Medications Allergies Coded Allergies: amoxicillin (Verified Allergy, Unknown, 03/10/19) clavulanic acid (Verified Allergy, Unknown, 03/10/19) lisinopril (Verified Allergy, Unknown, 05/06/21) Patient Home Medication List Home Medication List Reviewed: Yes Albuterol Sulfate (Ventolin Hfa) 1 Puff Puff, 2 PUFF IH Q4H Prescribed by: ELLIS RAMIREZ on 06/08/20822 Nitroglycerin (Nitroglycerin) 0.4 Mg Tab.subl, 0.4 MG SL UD PRN for CHEST PAIN Prescribed by: ELLIS RAMIREZ on 06/08/20822 Review of Systems Review of Systems Constitutional: No chills, No fever EENTM: no symptoms reported Respiratory: see HPI Cardiovascular: see HPI Gastrointestinal: see HPI Genitourinary: no symptoms reported Musculoskeletal: no symptoms reported Skin: No rash Psychiatric/Neurological: Denies Headache Past Reowdta-Lugytr-Pncksx Hx Patient Social History Tobacco Use?: Yes Tobacco type used: Cigarettes Smoking Status: Current Everyday Smoker Substance use?: No Alcohol Use?: No Pt feels they are or have been: No Immunizations Up To Date First/Initial COVID19 Vaccinat: UNK Second COVID19 Vaccination Edgardo: UNK Third COVID19 Vaccination Date: UNK Seasonal Allergies Seasonal Allergies: No Past Medical History Surgery/Hospitalization HX: COPD; Cardiac Stents; High Cholesterol; HTN Surgeries: Yes Abdominal, Angioplasty, Section, Coronary Stent, Orthopedic Respiratory: Yes Pulmonary Embolism, COPD Cardiac: Yes Coronary Artery Disease, Deep Vein Thrombosis, Heart Attack, Hypertension Neurological: No Genitourinary: No Gastrointestinal: No Musculoskeletal: No Endocrine: No HEENT: No Cancer: No Psychosocial: No Integumentary: No Blood Disorders: Yes (Thrombocytosis and microcytosis of RBCs by stated history) Physical Exam Vital Signs Vital Signs - First Documented 02/11/22 15:20 Temp 36.4 Pulse 72 Resp 22 B/P (MAP) 144/87 (106) Pulse Ox 98 O2 Delivery Room Air Capillary Refill : Height, Weight, BMI Height: '" Weight: lbs. oz. kg; 39.00 BMI Method: General Appearance: Anxious, Chronically ill, Obese HEENT: PERRL/EOMI, Pharynx Normal Neck: Full Range of Motion, Normal Inspection, Non Tender, Supple Respiratory: Chest Non Tender, No Accessory Muscle Use, No Respiratory Distress, Decreased Breath Sounds; No Rhonci, No Stridor; Wheezing Cardiovascular: Regular Rate, Rhythm, Normal Peripheral Pulses Gastrointestinal: Normal Bowel Sounds, No Pulsatile Mass, Non Tender, Soft Extremity: Normal Capillary Refill, Normal Inspection, No Calf Tenderness, No Pedal Edema Neurologic/Psychiatric: Alert, Oriented x3 Skin: Normal Color, Warm/Dry Progress/Results/Core Measures Suspected Sepsis SIRS Temperature: Pulse: Respiratory Rate: Laboratory Tests 02/11/22 15:10: White Blood Count 10.4 Blood Pressure / Mean: Laboratory Tests 02/11/22 15:10: Creatinine 0.88, INR Comment 0.9, Platelet Count 381, Total Bilirubin 0.3 Results/Orders Lab Results Laboratory Tests Test 02/11/22 15:10 02/11/22 17:02 Range/Units White Blood Count 10.4 4.3-11.0 10^3/uL Red Blood Count 4.59 3.80-5.11 10^6/uL Hemoglobin 13.5 11.5-16.0 g/dL Hematocrit 41 35-52 % Mean Corpuscular Volume 90 80-99 fL Mean Corpuscular Hemoglobin 29 25-34 pg Mean Corpuscular Hemoglobin Concent 33 32-36 g/dL Red Cell Distribution Width 14.6 H 10.0-14.5 % Platelet Count 381 130-400 10^3/uL Mean Platelet Volume 10.0 9.0-12.2 fL Immature Granulocyte % (Auto) 0 % Neutrophils (%) (Auto) 53 42-75 % Lymphocytes (%) (Auto) 36 12-44 % Monocytes (%) (Auto) 6 0-12 % Eosinophils (%) (Auto) 4 0-10 % Basophils (%) (Auto) 1 0-10 % Neutrophils # (Auto) 5.5 1.8-7.8 10^3/uL Lymphocytes # (Auto) 3.7 1.0-4.0 10^3/uL Monocytes # (Auto) 0.7 0.0-1.0 10^3/uL Eosinophils # (Auto) 0.4 H 0.0-0.3 10^3/uL Basophils # (Auto) 0.1 0.0-0.1 10^3/uL Immature Granulocyte # (Auto) 0.0 0.0-0.1 10^3/uL Prothrombin Time 12.7 12.2-14.7 SEC INR Comment 0.9 0.8-1.4 Activated Partial Thromboplast Time 28 24-35 SEC Sodium Level 140 135-145 MMOL/L Potassium Level 4.3 3.6-5.0 MMOL/L Chloride Level 102 98-107 MMOL/L Carbon Dioxide Level 29 21-32 MMOL/L Anion Gap 9 5-14 MMOL/L Blood Urea Nitrogen 15 7-18 MG/DL Creatinine 0.88 0.60-1.30 MG/DL Estimat Glomerular Filtration Rate 77 BUN/Creatinine Ratio 17 Glucose Level 112 H 70-105 MG/DL Calcium Level 9.3 8.5-10.1 MG/DL Corrected Calcium 9.1 8.5-10.1 MG/DL Magnesium Level 1.9 1.6-2.4 MG/DL Total Bilirubin 0.3 0.1-1.0 MG/DL Aspartate Amino Transf (AST/SGOT) 25 5-34 U/L Alanine Aminotransferase (ALT/SGPT) 22 0-55 U/L Alkaline Phosphatase 116 40-136 U/L Troponin I < 0.30 < 0.30 <0.30 NG/ML Pro-B-Type Natriuretic Peptide 204.5 H <125.0 PG/ML Total Protein 7.4 6.4-8.2 GM/DL Albumin 4.2 3.2-4.5 GM/DL Lipase 48 8-78 U/L My Orders Orders - ANNE HENLEY MD Cbc With Automated Diff (02/11/22 15:) Magnesium (02/11/22 15:) Ekg Tracing (02/11/22:) Comprehensive Metabolic Panel (02/11/22:) Protime With Inr (02/11/22 15:21) Partial Thromboplastin Time (02/11/22 15:21) O2 (02/11/22 15:21) Monitor-Rhythm Ecg Trace Only (02/11/22 15:21) Ed Iv/Invasive Line Start (02/11/22 15:21) Lipase (02/11/22 15:21) Troponin I Fs (02/11/22 15:21) Probnp Fs (02/11/22 15:21) Albuterol/Ipra Inhalation Soln (Duoneb I (02/11/22 15:31) Morphine Injection (Morphine Injection (02/11/22 15:31) Ondansetron Injection (Zofran Injectio (02/11/22 15:31) Pantoprazole Injection (Protonix Injecti (02/11/22 15:31) Svn Small Volume Nebulizer (02/11/22 15:31) Chest 1 View Ap/Pa Only (02/11/22 15:31) Ekg Tracing (02/11/22 17:03) Troponin I Fs (02/11/22 17:03) Vital Signs/I&O 02/11/22 15:20 Temp 36.4 Pulse 72 Resp 22 B/P (MAP) 144/87 (106) Pulse Ox 98 O2 Delivery Room Air Capillary Refill : Progress Note #1: Progress Note Electrocardiogram was obtained and shows sinus rhythm without ST elevation. Appears similar to tracing from May 2021. Ordered blood work as well as chest x-ray to look at blood count, electrolytes, cardiac enzymes, proBNP. Order a dose of morphine 4 mg IV for pain, Protonix 40 mg IV in case there is a GI component, Zofran 4 mg IV for her nausea. DuoNeb to help with her wheezing and cough with chronic shortness of breath. Differential diagnosis includes myocardial infarction, COPD exacerbation, pneumonia, GERD, pleurisy, chest wall pain Progress Note #2: Time: 16:05 Progress Note Patient was feeling better after medication and treatment. She reports that the pain is easing up. She is resting comfortably in the bed and is a little sleepy from the morphine. Placed on supplemental oxygen at 2 L/min to help with oxygen saturation as she was dropping down to 88 to 89% on room air. Initial chest x- ray shows cardiomegaly but no effusion or infiltrate. She has no acute ST elevation on her electrocardiogram and appears similar to May 2021. Initial labs did not show any acute significant abnormality on CBC. Her chemistry panel showed stable electrolytes and negative troponin at less than 0.3. She does not show any signs of renal or hepatic failure. With her symptoms improving well plan on repeating the electrocardiogram and troponin level after about another hour. This would be about 4 hours after onset of symptoms. There is continued negative well anticipate discharge to home and follow-up through the clinic. If she has elevation in her change in her troponin or EKG we will consult with cardiology with Dr. Augustine's group in [place]. Progress Note #3: Time: 17:04 Progress Note patient continues to rest in room and reports improved symptoms. obtain repeat troponin blood draw and will order ECG to ensure there is no acute change from initial tracing. Progress Note #4: Progress Note Repeat troponin is still less than 0.3. Repeat electrocardiogram continues to show no acute ST elevation and there is no acute change from prior tracings other than less artifact on this tracing. Patient's symptoms have improved and she asked if some of this could be anxiety related. Counseled on follow-up and return precautions. Stressed importance of follow-up with Dr. Pryor in . ECG Initial ECG Impression Date: Feb 11, 2022 Initial ECG Impression Time: 15:11 Initial ECG Rate: 63 Initial ECG Rhythm: Normal Sinus Initial ECG Comparisson: Unchanged (May 08, 2021) Comment On my independent review and interpretation her electrocardiogram shows sinus rhythm with a heart rate of 63 bpm. There is no acute ST elevation. ND interval 156 ms. QT interval 425 ms with a QTc interval 432 ms. Overall this appears similar to tracing from May 08, 2021. EKG : EKG Time: 17:08 Rate: 73 Rhythm: Normal Sinus ECG Comparisson: Unchanged Comment None my independent review and interpretation of her electrocardiogram shows a sinus rhythm at 73 bpm. ND interval [address] elevation. Continued Q waves in inferior leads. QT interval 410 ms with a QTc interval 435 ms. Overall appears similar to initial tracing with less artifact and with the tracing from May. Diagnostic Imaging Diagonstic Imaging: Xray Plain Films/CT/US/NM/MRI: chest Comments [facility], [place] NAME: NATALYA OJEDA [facility] REC#: [id number] PT STATUS: REG ER : 1965 PHYSICIAN: ANNE HENLEY MD ADMIT DATE: 02/11/22/ER FS Draft Date of Exam:02/11/22 CHEST 1 VIEW AP/PA ONLY INDICATION: Chest pain. TECHNIQUE: Frontal chest obtained at 03:33 p.m. and compared with 05/06/2021. FINDINGS: There is cardiomegaly. There is minimal central vascular prominence. There is no focal consolidation or pneumothorax or pleural fluid. IMPRESSION: Cardiomegaly with no acute process in the chest. Dictated on workstation # [id number] Dict: 02/11/22 1540 Trans: 02/11/22 1544 [id number] Interpreted by: NELI CHRISTIE MD Electronically signed by: Reviewed: Reviewed by Me Departure Impression Primary Impression: Pressure in chest Disposition: 01 HOME, SELF-CARE Condition: Stable Departure-Patient Inst. Decision time for Depature: 17:43 Referrals: JANAY ESTRADA MD (PCP/Family) Primary Care Physician Patient Instructions: Chest Pain, Adult ED, Chest Pain That Is Not Caused by the Heart (DC) Add. Discharge Instructions: Your labs and tests are all negative for acute heart attack. Continue with your regular medicines and call Dr. Pryor to follow up with him about your symptoms. Return or seek medical care for recurrent or worsening symptoms. All discharge instructions reviewed with patient and/or family. Voiced understanding. ANNE HENLEY MD Feb 11, 2022 15:17
[2022-02-11 15:20] VITALS: BP 144/87
[2022-02-11 15:29] LABS: BASOPHILS # (AUTO) 0.1 10^3/uL (0.0-0.1); BASOPHILS % (AUTO) 1 % (0-10); EOSINOPHILS # (AUTO) 0.4 10^3/uL (0.0-0.3); EOSINOPHILS % (AUTO) 4 % (0-10); HEMATOCRIT 41 % (35-52); HEMOGLOBIN 13.5 g/dL (11.5-16.0); LYMPHOCYTES # (AUTO) 3.7 10^3/uL (1.0-4.0); LYMPHOCYTES % (AUTO) 36 % (12-44); MEAN CORPUSCULAR HEMOGLOBIN 29 pg (25-34); MEAN CORPUSCULAR HGB CONC 33 g/dL (32-36); MEAN CORPUSCULAR VOLUME 90 fL (80-99); MONOCYTES # (AUTO) 0.7 10^3/uL (0.0-1.0); MONOCYTES % (AUTO) 6 % (0-12); NEUTROPHILS # (AUTO) 5.5 10^3/uL (1.8-7.8); NEUTROPHILS % (AUTO) 53 % (42-75); PLATELET COUNT 381 10^3/uL (130-400); WHITE BLOOD COUNT 10.4 10^3/uL (4.3-11.0)
[2022-02-11] MEDS ORDERED: morphine INJ 10 MG/ML 1ML (SYR OR VIAL) IVP STA (15:31)
[2022-02-11] MEDS ORDERED: RT-ALBUTEROL/IPRATROPIUM 3 ML (DUONEB) VIAL INH STA (15:31)
[2022-02-11] MEDS ORDERED: PANTOPRAZOLE 40 MG (PROTONIX) VIAL IV STA (15:31)
[2022-02-11] MEDS ORDERED: ONDANSETRON 4 MG/2 ML (SDV) Z0FRAN IVP STA (15:31)
[2022-02-11 15:38] LABS: INR 0.9 (0.8-1.4); PROTHROMBIN TIME PATIENT 12.7 SEC (12.2-14.7)
[2022-02-11 15:43] LABS: BILIRUBIN,TOTAL 0.3 MG/DL (0.1-1.0); CALCIUM 9.3 MG/DL (8.5-10.1); CREATININE SERUM 0.88 MG/DL (0.60-1.30); MAGNESIUM 1.9 MG/DL (1.6-2.4); POTASSIUM 4.3 MMOL/L (3.6-5.0)
[2022-02-11 15:44] LABS: ALBUMIN 4.2 GM/DL (3.2-4.5); TOTAL PROTEIN 7.4 GM/DL (6.4-8.2)
--- NOTE | 2022-02-11 15:44 | Diagnostic Imaging Report ---
INDICATION: Chest pain. TECHNIQUE: Frontal chest obtained at 03:33 p.m. and compared with 05/06/2021. FINDINGS: There is cardiomegaly. There is minimal central vascular prominence. There is no focal consolidation or pneumothorax or pleural fluid. IMPRESSION: Cardiomegaly with no acute process in the chest. Dictated by: Dictated on workstation # [id number]
== END 2022-02-11 17:55 | disposition home or self-care (01) ==
LOC: EDUNIT# 15:04 → ER FS 15:06
DX: R07.2 Precordial pain (principal); I51.7 Cardiomegaly; F17.210 Nicotine dependence, cigarettes, uncomplicated; E66.9 Obesity, unspecified; Z68.39 Body mass index [BMI] 39.0-39.9, adult
CPT/HCPCS: 36415; 71045; 80053; 83690; 83735; 83880; 84484; 85025; 85610; 85730; 93005; 93041

== ENCOUNTER 2022-03-07 16:07 | Emergency (ER) | payer SELFPAY ==
[2022-03-07] MEDS ORDERED: FAMOTIDINE 20MG/2ML IV (PEPCID) IV STA (16:31)
--- NOTE | 2022-03-07 16:31 | ED Abdominal Pain ---
General Chief Complaint: Abdominal/GI Problems Stated Complaint: STOMACH PAIN, NAUSEA, VOMITING, NOSE BLEED History of Present Illness Date Seen by Provider: Mar 07, 2022 Time Seen by Provider: 16:27 Initial Comments 56-year-old female with PMH of CAD with 5 stents/smoker/HTN/obesity/hysterectomy, is here with complaints of epigastric pain and severe nausea and vomiting which began at 14: 30 p.m. today afternoon. Patient's last meal consisted of vegetable soup today. Patient has been retching and vomiting nonstop in the ER in spite of being given Zofran. Denies fever, diarrhea, chest pain, palpitations, shortness of breath, respiratory symptoms, headache, dizziness. No known sick contacts. Allergies and Home Medications Allergies Coded Allergies: amoxicillin (Verified Allergy, Unknown, 03/10/19) clavulanic acid (Verified Allergy, Unknown, 03/10/19) lisinopril (Verified Allergy, Unknown, 05/06/21) Patient Home Medication List Home Medication List Reviewed: Yes Albuterol Sulfate (Ventolin Hfa) 1 Puff Puff, 2 PUFF IH Q4H Prescribed by: ELLIS RAMIREZ on 06/08/20822 Nitroglycerin (Nitroglycerin) 0.4 Mg Tab.subl, 0.4 MG SL UD PRN for CHEST PAIN Prescribed by: ELLIS RAMIREZ on 06/08/20822 Review of Systems Review of Systems Constitutional: no symptoms reported EENTM: No Symptoms Reported Respiratory: No Symptoms Reported Cardiovascular: No Symptoms Reported Gastrointestinal: Abdominal Pain, Nausea, Poor Fluid Intake, Vomiting Genitourinary: No Symptoms Reported Musculoskeletal: no symptoms reported Skin: no symptoms reported Psychiatric/Neurological: No Symptoms Reported Endocrine: No Symptoms Reported Hematologic/Lymphatic: No Symptoms Reported Past Exknjde-Zfsrhr-Pbyfib Hx Patient Social History Tobacco Use?: Yes Tobacco type used: Cigarettes Smoking Status: Current Everyday Smoker Use of E-Cig and/or Vaping dev: No Substance use?: No Alcohol Use?: No Pt feels they are or have been: No Immunizations Up To Date First/Initial COVID19 Vaccinat: UNK Second COVID19 Vaccination Edgardo: UNK Third COVID19 Vaccination Date: UNK Seasonal Allergies Seasonal Allergies: No Past Medical History Surgery/Hospitalization HX: COPD; Cardiac Stents; High Cholesterol; HTN Surgeries: Yes Abdominal, Angioplasty, Section, Coronary Stent, Orthopedic Respiratory: Yes Pulmonary Embolism, COPD Cardiac: Yes Coronary Artery Disease, Deep Vein Thrombosis, Heart Attack, Hypertension Neurological: No Genitourinary: No Gastrointestinal: No Musculoskeletal: No Endocrine: No HEENT: No Cancer: No Psychosocial: No Integumentary: No Blood Disorders: Yes (Thrombocytosis and microcytosis of RBCs by stated history) Physical Exam Vital Signs Vital Signs - First Documented 03/07/22 16:07 Temp 35.8 Pulse 58 Resp 18 B/P (MAP) 133/62 (85) Pulse Ox 97 O2 Delivery Room Air Capillary Refill : Height/Weight/BMI Height: '" Weight: lbs. oz. kg; 33.00 BMI Method: General Appearance: WD/WN, moderate distress, obese HEENT: PERRL/EOMI, normal ENT inspection Neck: full range of motion Respiratory: chest non-tender, lungs clear, normal breath sounds, no respiratory distress Cardiovascular: regular rate, rhythm, no edema Gastrointestinal: normal bowel sounds, soft, tenderness (In the epigastric area) Extremities: normal range of motion Back: normal inspection, no CVA tenderness Neurologic/Psychiatric: no motor/sensory deficits, alert, normal mood/affect, oriented x 3 Skin: normal color Focused Exam Lactate Level 03/07/22 16:43: Lactic Acid Level 2.41*H Lactic Acid Level Laboratory Tests Test 03/07/22 16:43 Lactic Acid Level 2.41 MMOL/L (0.50-2.00) *H Progress/Results/Core Measures Results/Orders Lab Results Laboratory Tests Test 03/07/22 16:05 03/07/22 16:25 03/07/22 16:43 Range/Units Urine Color YELLOW Urine Clarity CLEAR Urine pH 7.5 5-9 Urine Specific [place] 1.020 1.016-1.022 Urine Protein TRACE H NEGATIVE Urine Glucose (UA) NEGATIVE NEGATIVE Urine Ketones NEGATIVE NEGATIVE Urine Nitrite NEGATIVE NEGATIVE Urine Bilirubin NEGATIVE NEGATIVE Urine Urobilinogen 2.0 < = 1.0 MG/DL Urine Leukocyte Esterase NEGATIVE NEGATIVE Urine RBC (Auto) NEGATIVE NEGATIVE Urine RBC 5-10 H /HPF Urine WBC 2-5 /HPF Urine Squamous Epithelial Cells 25-50 H /HPF Urine Crystals NONE /LPF Urine Bacteria MODERATE H /HPF Urine Casts NONE /LPF Urine Mucus NEGATIVE /LPF Urine Yeast FEW H /HPF Urine Culture Indicated NO Urine Opiates Screen NEGATIVE NEGATIVE Urine Oxycodone Screen NEGATIVE NEGATIVE Urine Methadone Screen NEGATIVE NEGATIVE Urine Propoxyphene Screen NEGATIVE NEGATIVE Urine Barbiturates Screen NEGATIVE NEGATIVE Ur Tricyclic Antidepressants Screen NEGATIVE NEGATIVE Urine Phencyclidine Screen NEGATIVE NEGATIVE Urine Amphetamines Screen NEGATIVE NEGATIVE Urine Methamphetamines Screen NEGATIVE NEGATIVE Urine Benzodiazepines Screen NEGATIVE NEGATIVE Urine Cocaine Screen NEGATIVE NEGATIVE Urine Cannabinoids Screen NEGATIVE NEGATIVE White Blood Count 14.9 H 4.3-11.0 10^3/uL Red Blood Count 4.60 3.80-5.11 10^6/uL Hemoglobin 13.5 11.5-16.0 g/dL Hematocrit 41 35-52 % Mean Corpuscular Volume 89 80-99 fL Mean Corpuscular Hemoglobin 29 25-34 pg Mean Corpuscular Hemoglobin Concent 33 32-36 g/dL Red Cell Distribution Width 14.5 10.0-14.5 % Platelet Count 387 130-400 10^3/uL Mean Platelet Volume 9.9 9.0-12.2 fL Immature Granulocyte % (Auto) 0 % Neutrophils (%) (Auto) 73 42-75 % Lymphocytes (%) (Auto) 19 12-44 % Monocytes (%) (Auto) 7 0-12 % Eosinophils (%) (Auto) 1 0-10 % Basophils (%) (Auto) 1 0-10 % Neutrophils # (Auto) 10.9 H 1.8-7.8 10^3/uL Lymphocytes # (Auto) 2.8 1.0-4.0 10^3/uL Monocytes # (Auto) 1.0 0.0-1.0 10^3/uL Eosinophils # (Auto) 0.2 0.0-0.3 10^3/uL Basophils # (Auto) 0.1 0.0-0.1 10^3/uL Immature Granulocyte # (Auto) 0.1 0.0-0.1 10^3/uL Neutrophils % (Manual) 75 % Lymphocytes % (Manual) 20 % Monocytes % (Manual) 4 % Eosinophils % (Manual) 1 % Sodium Level 139 135-145 MMOL/L Potassium Level 4.2 3.6-5.0 MMOL/L Chloride Level 100 98-107 MMOL/L Carbon Dioxide Level 27 21-32 MMOL/L Anion Gap 12 5-14 MMOL/L Blood Urea Nitrogen 12 7-18 MG/DL Creatinine 0.80 0.60-1.30 MG/DL Estimat Glomerular Filtration Rate 86 BUN/Creatinine Ratio 15 Glucose Level 128 H 70-105 MG/DL Calcium Level 9.2 8.5-10.1 MG/DL Corrected Calcium 9.4 8.5-10.1 MG/DL Magnesium Level 1.8 1.6-2.4 MG/DL Total Bilirubin 0.6 0.1-1.0 MG/DL Aspartate Amino Transf (AST/SGOT) 45 H 5-34 U/L Alanine Aminotransferase (ALT/SGPT) 30 0-55 U/L Alkaline Phosphatase 144 H 40-136 U/L Total Protein 7.0 6.4-8.2 GM/DL Albumin 3.7 3.2-4.5 GM/DL Lipase 67 8-78 U/L Serum Alcohol < 10 <10 MG/DL Lactic Acid Level 2.41 *H 0.50-2.00 MMOL/L My Orders Orders - JOSE RAUL ROGERS MD Ondansetron Injection (Zofran Injectio (03/07/22 16:45) Famotidine Injection (Pepcid Injection) (03/07/22 16:31) Ed Iv/Invasive Line Start (03/07/22 16:31) Alcohol (03/07/22 16:32) Cbc With Automated Diff (03/07/22 16:32) Comprehensive Metabolic Panel (03/07/22 16:32) Drug Screen Stat (Urine) (03/07/22 16:32) Lactic Acid Analyzer (03/07/22 16:32) Lipase (03/07/22 16:32) Magnesium (03/07/22 16:32) Ua Culture If Indicated (03/07/22 16:32) Ct Abdomen/Pelvis W (03/07/22 16:33) Manual Differential (03/07/22 16:25) Iohexol Injection (Omnipaque 350 Mg/Ml 1 (03/07/22 17:00) Received Contrast (Hold Metformin- Contr (03/07/22 17:00) Sodium Chloride Flush (Catheter Flush Sy (03/07/22 17:00) Ns (Ivpb) (Sodium Chloride 0.9% Ivpb Bag (03/07/22 17:00) Metoclopramide Injection (Reglan Injecti (03/07/22 17:26) Metoclopramide Injection (Reglan Injecti (03/07/22 17:28) Blood Culture (03/07/22 17:42) Ed Iv/Invasive Line Start (03/07/22 17:42) Vital Signs Adult Sepsis Patie Q15M (03/07/22 17:42) Ns Iv 1000 Ml (Sodium Chloride 0.9%) (03/07/22 17:45) Metronidazole 500mg/100ml Ivpb (Flagyl 5 (03/07/22 17:45) Nothing By Mouth (03/07/22 Dinner) Medications Given in ED Current Medications Medications Dose Ordered Sig/Laila Route Start Time Stop Time Status Last Admin Dose Admin Iohexol 100 ml ONCE ONCE IV 03/07/22 17:00 03/07/22 17:01 UNV 03/07/22 17:11 80 ML Metronidazole 100 ml @ 100 mls/hr ONCE ONCE IV 03/07/22 17:45 03/07/22 18:44 03/07/22 17:53 100 MLS/HR Ondansetron HCl 4 mg ONCE ONCE IVP 03/07/22 16:45 03/07/22 16:46 DC 03/07/22 16:36 4 MG Sodium Chloride 10 ml NEEDED PRN IV 03/07/22 17:00 UNV 03/07/22 17:11 10 ML Sodium Chloride 100 ml ONCE ONCE IV 03/07/22 17:00 03/07/22 17:01 UNV 03/07/22 17:10 100 ML Vital Signs/I&O 03/07/22 16:07 Temp 35.8 Pulse 58 Resp 18 B/P (MAP) 133/62 (85) Pulse Ox 97 O2 Delivery Room Air Progress Progress Note : Progress Note 1. ACUTE CHOLECYSTITIS WITH INTRACTABLE VOMITING & DEHYDRATION, SEPSIS: - CT ABD/ PELVIS: acute cholecystitis - CBC: Elevated WBC of 14.9 with a left shift -Elevated alk phos: 144 -Elevated lactic acid: 2.41 -UA is positive for bacteria and RBC - Pt is on Plavix and ASA, and pt reports her last stent was placed approximately 13 to 14 months ago at [facility] but she cannot remember the exact date. - NPO - NS IVF bolus - Ceftriaxone 1gm iv STAT/ Flagyl 500mg iv - Zofran 4mg iv , then Reglan 10mg iv - Discussed with surgery consult and hospitalist at [facility] at 17:42, but no beds available. Called [facility] at pt's request and they do not have a surgeon correspondence analyst. Then contacted [facility] also at pt's request and accepted by Dr Gagnon, surgeon. Diagnostic Imaging Diagonstic Imaging: CT Plain Films/CT/US/NM/MRI: abdomen Comments [facility], [facility]. [place], [place] NAME: NATALYA OJEDA [facility] REC#: [id number] PT STATUS: REG ER : 1965 PHYSICIAN: JOSE RAUL ROGERS MD ADMIT DATE: 03/07/22/ER FS Draft Date of Exam:03/07/22 CT ABDOMEN/PELVIS W PROCEDURE: CT abdomen and pelvis with contrast. TECHNIQUE: Multiple contiguous axial images were obtained through the abdomen and pelvis after administration of intravenous contrast. Auto Exposure Controls were utilized during the CT exam to meet ALARA standards for radiation dose reduction. All CT scans use one or more of the following dose optimizing techniques: automated exposure control, MA and/or KvP adjustment based on patient size and exam type or iterative reconstruction. INDICATION: Epigastric pain. COMPARISON: None available. FINDINGS: Mild bibasilar chronic interstitial lung changes. Small gallstone is noted within the gallbladder. The gallbladder is mildly dilated. Gallbladder wall thickening with associated pericholecystic fluid is present. The common bile duct measures 6 mm. The liver and spleen are unremarkable. The adrenal glands are unremarkable. The pancreas is unremarkable. Left renal cyst. Additional hypodensities which are tiny are noted within the bilateral kidneys which are too small to completely characterize. No evidence of hydronephrosis. Ectasia of the infrarenal abdominal aorta measuring up to 2.5 cm. The urinary bladder is decompressed, therefore not well evaluated. The uterus and adnexal structures are unremarkable. The appendix is unremarkable. No bowel obstruction or pneumatosis. No significant adenopathy, free air or free fluid within the abdomen or pelvis. No acute osseous abnormality with scattered osseous degenerative changes. IMPRESSION: Findings concerning for acute cholecystitis. Right upper quadrant ultrasound could be performed, if necessary. Additional findings as above. Dictated on workstation # [id number] Dict: 03/07/22 1714 Trans: 03/07/22 1721 PJE [id number] Interpreted by: DICKSON SHARMA MD Electronically signed by: Departure Impression Primary Impression: Acute acalculous cholecystitis Additional Impressions: Dehydration Sepsis Intractable nausea and vomiting Disposition: 30 STILL A PATIENT Condition: Stable Transfer Transfer Reason: Exceeds level of care Time Spoke to Accepting Phy: 18:25 Transfer Progress Notes Discussed with Dr. Gagnon, surgery consult: Accepted for admission to surgery. Transfer Facility: [facility] Method of Transfer: EMS Departure-Patient Inst. Referrals: JANAY ESTRADA MD (PCP/Family) Primary Care Physician JOSE RAUL ROGERS MD Mar 07, 2022 16:31
[2022-03-07 16:37] LABS: BASOPHILS # (AUTO) 0.1 10^3/uL (0.0-0.1); BASOPHILS % (AUTO) 1 % (0-10); EOSINOPHILS # (AUTO) 0.2 10^3/uL (0.0-0.3); EOSINOPHILS % (AUTO) 1 % (0-10); HEMATOCRIT 41 % (35-52); HEMOGLOBIN 13.5 g/dL (11.5-16.0); LYMPHOCYTES # (AUTO) 2.8 10^3/uL (1.0-4.0); LYMPHOCYTES % (AUTO) 19 % (12-44); MEAN CORPUSCULAR HEMOGLOBIN 29 pg (25-34); MEAN CORPUSCULAR HGB CONC 33 g/dL (32-36); MEAN CORPUSCULAR VOLUME 89 fL (80-99); MEAN PLATELET VOLUME 9.9 fL (9.0-12.2); MONOCYTES % (AUTO) 7 % (0-12); NEUTROPHILS # (AUTO) 10.9 10^3/uL (1.8-7.8); NEUTROPHILS % (AUTO) 73 % (42-75); PLATELET COUNT 387 10^3/uL (130-400); WHITE BLOOD COUNT 14.9 10^3/uL (4.3-11.0)
[2022-03-07 16:37] LABS: BILIRUBIN,URINE NEGATIVE (NEGATIVE); CLARITY,URINE CLEAR; COLOR,URINE YELLOW; GLUCOSE, URINE (UA) NEGATIVE (NEGATIVE); KETONES,URINE NEGATIVE (NEGATIVE); LEUKOCYTE ESTERASE ,URINE NEGATIVE (NEGATIVE); NITRITE,URINE NEGATIVE (NEGATIVE); PH,URINE 7.5 (5-9); PROTEIN,URINE TRACE (NEGATIVE)
[2022-03-07 16:41] LABS: BACTERIA,URINE MODERATE /HPF; SQUAMOUS EPITHELIAL CELL,UR 25-50 /HPF; YEAST,URINE FEW /HPF
[2022-03-07] MEDS ORDERED: ONDANSETRON 4 MG/2 ML (SDV) Z0FRAN IVP ONE (16:45)
[2022-03-07 16:50] LABS: ALANINE AMINOTRANSFERASE 30 U/L (0-55); ALBUMIN 3.7 GM/DL (3.2-4.5); ALKALINE PHOSPHATASE 144 U/L (40-136); BILIRUBIN,TOTAL 0.6 MG/DL (0.1-1.0); BUN/CREATININE RATIO 15; CALCIUM 9.2 MG/DL (8.5-10.1); CARBON DIOXIDE 27 MMOL/L (21-32); CHLORIDE 100 MMOL/L (98-107); GFR ESTIMATED 86; GLUCOSE 128 MG/DL (70-105); MAGNESIUM 1.8 MG/DL (1.6-2.4); POTASSIUM 4.2 MMOL/L (3.6-5.0); SODIUM 139 MMOL/L (135-145)
[2022-03-07 16:50] LABS: AMPHETAMINE SCREEN, URINE NEGATIVE (NEGATIVE); BARBITURATE SCREEN URINE NEGATIVE (NEGATIVE); BENZODIAZEPINES SCREEN URINE NEGATIVE (NEGATIVE); CANNABINOID SCREEN, URINE NEGATIVE (NEGATIVE); COCAINE SCREEN URINE NEGATIVE (NEGATIVE); METHADONE STAT NEGATIVE (NEGATIVE); OPIATE SCREEN URINE NEGATIVE (NEGATIVE); OXYCODONE STAT NEGATIVE (NEGATIVE); PROPOXYPHENE STAT NEGATIVE (NEGATIVE); TRICYCLIC ANTIDEPRESSANTS SCRE NEGATIVE (NEGATIVE)
[2022-03-07 16:51] LABS: LIPASE 67 U/L (8-78)
[2022-03-07] MEDS ORDERED: HOLD METFORMIN - RECEIVED CONTRAST 20 ML VIAL IV SCH (17:00)
[2022-03-07] MEDS ORDERED: NS 100 ML (IVPB) BAG IV ONE (17:00)
[2022-03-07] MEDS ORDERED: IOHEXOL 350 MG/ML 100 ML (OMNIPAQUE 350) VIAL IV ONE (17:00)
[2022-03-07] MEDS ORDERED: CATHETER FLUSH 10 ML SYR IV PRN (17:00)
--- NOTE | 2022-03-07 17:21 | Diagnostic Imaging Report ---
PROCEDURE: CT abdomen and pelvis with contrast. TECHNIQUE: Multiple contiguous axial images were obtained through the abdomen and pelvis after administration of intravenous contrast. Auto Exposure Controls were utilized during the CT exam to meet ALARA standards for radiation dose reduction. All CT scans use one or more of the following dose optimizing techniques: automated exposure control, MA and/or KvP adjustment based on patient size and exam type or iterative reconstruction. INDICATION: Epigastric pain. COMPARISON: None available. FINDINGS: Mild bibasilar chronic interstitial lung changes. Small gallstone is noted within the gallbladder. The gallbladder is mildly dilated. Gallbladder wall thickening with associated pericholecystic fluid is present. The common bile duct measures 6 mm. The liver and spleen are unremarkable. The adrenal glands are unremarkable. The pancreas is unremarkable. Left renal cyst. Additional hypodensities which are tiny are noted within the bilateral kidneys which are too small to completely characterize. No evidence of hydronephrosis. Ectasia of the infrarenal abdominal aorta measuring up to 2.5 cm. The urinary bladder is decompressed, therefore not well evaluated. The uterus and adnexal structures are unremarkable. The appendix is unremarkable. No bowel obstruction or pneumatosis. No significant adenopathy, free air or free fluid within the abdomen or pelvis. No acute osseous abnormality with scattered osseous degenerative changes. IMPRESSION: Findings concerning for acute cholecystitis. Right upper quadrant ultrasound could be performed, if necessary. Additional findings as above. Dictated by: Dictated on workstation # [id number]
[2022-03-07] MEDS ORDERED: METOCLOPRAMIDE INJ 10 MG/2 ML (REGLAN) IVP STA (17:26)
[2022-03-07] MEDS ORDERED: METOCLOPRAMIDE INJ 10 MG/2 ML (REGLAN) ONE (17:28)
[2022-03-07 17:35] LABS: EOSINOPHILS % (MANUAL) 1 %; LYMPHOCYTES % (MANUAL) 20 %; MONOCYTES % (MANUAL) 4 %; NEUTROPHILS % (MANUAL) 75 %
[2022-03-07] MEDS ORDERED: metroNIDAZOLE 500MG/100ML IVPB 100 ML IV ONE (17:45)
[2022-03-07] MEDS ORDERED: NS IV 1000 ML 1,000 ML IV SCH (17:45)
[2022-03-07] MEDS ORDERED: fentaNYL INJ 100 MCG/2 ML AMP ONE (19:57)
[2022-03-07] MEDS ORDERED: fentaNYL INJ 100 MCG/2 ML AMP IVP ONE (20:00)
[2022-03-07 20:05] VITALS: BP 183/98
== END 2022-03-07 20:05 | disposition short-term general hospital (02) ==
LOC: EDUNIT# 16:07 → ER FS 16:09
DX: K81.0 Acute cholecystitis (principal); E86.0 Dehydration; A41.9 Sepsis, unspecified organism; E66.9 Obesity, unspecified; F17.210 Nicotine dependence, cigarettes, uncomplicated; Z68.33 Body mass index [BMI] 33.0-33.9, adult; Z79.02 Long term (current) use of antithrombotics/antiplatelets
CPT/HCPCS: 36415; 74177; 80053; 80306; 81000; 83605; 83690; 83735; 85007; 85027; 87040; 96361; 96365; 96375; 99284; G0480; 80320; Q9967

== ENCOUNTER 2022-08-04 05:29 | Outpatient (CLI) | payer OTHER ==
[~2022-08-04] VITALS: Ht 157.5 cm; Wt 113.6 kg
[2022-08-04] MEDS ORDERED: ATOR80TA76 PO (12:38)
[2022-08-04] MEDS ORDERED: METO50TA7 PO (12:38)
[2022-08-04] MEDS ORDERED: CLOP-31 PO (12:38)
[2022-08-04] MEDS ORDERED: ASPI-999 PO (12:38)
[2022-08-04] MEDS ORDERED: LOSA100T57 PO (12:38)
== END 2022-08-04 14:34 | disposition home or self-care (01) ==
LOC: PREOP 05:29
PROVIDERS: ATTEND Obstetrics & Gynecology
DX: Z01.818 Encounter for other preprocedural examination (principal)

== ENCOUNTER 2022-08-24 05:28 | Outpatient (CLI) | payer OTHER ==
[~2022-08-24 05:28] MED LIST changes: +ASPI-999 PO; +ATOR80TA76 PO; +CLOP-31 PO; +LOSA100T58 PO; +METO50TA7 PO
== END 2022-08-24 15:54 | disposition home or self-care (01) ==
LOC: PREOP 05:28
PROVIDERS: ATTEND Obstetrics & Gynecology
DX: Z01.818 Encounter for other preprocedural examination (principal)

== ENCOUNTER 2022-08-31 05:56 | Day surgery (SDC) | payer OTHER ==
[~2022-08-31] VITALS: Ht 157.5 cm; Wt 113.6 kg
[2022-08-31] VITALS (13 sets, daily range): BP systolic 91–170; BP diastolic 45–97
[2022-08-31] MEDS ORDERED: metroNIDAZOLE 500MG/100ML IVPB 100 ML IV ONE (06:15)
[2022-08-31] MEDS ORDERED: ceFAZolin INJECTION 2,000 MG in NS (IVPB) 50 ML IV ONE (06:15)
[2022-08-31] MEDS: LACTATED RINGERS 1,000 ML IV PRN ×2 (06:17→08:16)
[2022-08-31 06:39] LABS: BASOPHILS # (AUTO) 0.1 10^3/uL (0.0-0.1); BASOPHILS % (AUTO) 1 % (0-10); EOSINOPHILS # (AUTO) 0.5 10^3/uL (0.0-0.3); EOSINOPHILS % (AUTO) 5 % (0-10); HEMATOCRIT 39 % (35-52); HEMOGLOBIN 11.3 g/dL (11.5-16.0); LYMPHOCYTES # (AUTO) 2.9 10^3/uL (1.0-4.0); LYMPHOCYTES % (AUTO) 29 % (12-44); MEAN CORPUSCULAR HEMOGLOBIN 25 pg (25-34); MEAN CORPUSCULAR HGB CONC 29 g/dL (32-36); MEAN CORPUSCULAR VOLUME 85 fL (80-99); MEAN PLATELET VOLUME 9.4 fL (9.0-12.2); MONOCYTES # (AUTO) 0.8 10^3/uL (0.0-1.0); MONOCYTES % (AUTO) 8 % (0-12); NEUTROPHILS # (AUTO) 5.8 10^3/uL (1.8-7.8); NEUTROPHILS % (AUTO) 58 % (42-75); PLATELET COUNT 414 10^3/uL (130-400); WHITE BLOOD COUNT 10.1 10^3/uL (4.3-11.0)
[2022-08-31] MEDS ORDERED: BUPIVACAINE 0.25% 30 ML (SENSORCAINE) VIAL ONE (06:50)
[2022-08-31] MEDS ORDERED: GLYCOPYRROLATE 0.2 MG/ML (ROBINUL) 2 ML VIAL ONE (07:03)
[2022-08-31] MEDS ORDERED: proPOfol 200 MG/20 ML (DIPRIVAN) VIAL IV ONE (07:03)
[2022-08-31] MEDS ORDERED: ROCURONIUM 50 MG/5 ML (ZEMURON) VIAL IV ONE ×2 (07:03→07:47)
[2022-08-31] MEDS ORDERED: fentaNYL INJ 100 MCG/2 ML AMP ONE (07:03)
[2022-08-31] MEDS ORDERED: MIDAZOLAM 2 MG/2 ML (VERSED) VIAL ONE (07:03)
[2022-08-31] MEDS ORDERED: ONDANSETRON 4 MG/2 ML (SDV) Z0FRAN ONE (07:03)
[2022-08-31] MEDS ORDERED: NEOSTIGMINE (BLOXIVERZ ) 1 MG/1ML 10 ML VIAL ONE (07:03)
[2022-08-31] MEDS ORDERED: LIDOCAINE PF 2% 5 ML (XYLOCAINE) VIAL ONE (07:03)
--- NOTE | 2022-08-31 07:09 | Progress Note-Pre Operative ---
Pre-Operative Progress Note Date H&P Reviewed: Aug 31, 2022 Time H&P Reviewed: 07:07 History & Physical: H&P Reviewed, No changes noted Pre-Operative Diagnosis: PMB, simple hyperplasia w/o atypia JHON II SAILAJA DOBSON DO Aug 31, 2022 07:09
[2022-08-31] MEDS ORDERED: PHENYLEPHRINE 100 MCG/ML 10 ML (ANESTHESIA) SYR ONE (07:39)
[2022-08-31] MEDS ORDERED: RT-ALBUTEROL SULF 2.5 MG/3 ML PRE-MIX VIAL INH ONE (07:45)
[2022-08-31] MEDS ORDERED: BUPIVACAINE 0.25% 30 ML (SENSORCAINE) VIAL INJ ONE (07:49)
[2022-08-31] MEDS ORDERED: SUGAMMADEX 500 MG/5 ML VIAL (BRIDION) IV ONE (09:11)
[2022-08-31] MEDS ORDERED: SEVOFLURANE (ULTANE) 15 ML INHAL SOLN ONE (09:43)
[2022-08-31] MEDS ORDERED: BENZOCAINE/MENTHOL (DERMOPLAST) 56 ML CAN TP PRN (09:45)
[2022-08-31] MEDS ORDERED: HYDROcodone/APAP 7.5 MG/325 MG (LORTAB, LORCET PLUS) TABLET PO PRN (09:45)
[2022-08-31] MEDS ORDERED: METOCLOPRAMIDE INJ 10 MG/2 ML (REGLAN) IV PRN (09:45)
[2022-08-31] MEDS ORDERED: D5 LR IV SOLUTION 1,000 ML IV SCH (09:45)
[2022-08-31] MEDS ORDERED: morphine INJ 4 MG/ML 1 ML (VIAL/SYRINGE) IV PRN (09:45)
[2022-08-31] MEDS ORDERED: NALOXONE 0.4 MG/ML 1 ML (NARCAN) VIAL IV PRN (09:45)
[2022-08-31] MEDS ORDERED: KETOROLAC 15 MG/ML VIAL IV SCH (09:45)
--- NOTE | 2022-08-31 09:50 | Laparoscopy Operative Note ---
Laparoscopy Procedure Note Laparoscopy Procedure Note Patient Name: Genevieve Leyva Procedure Date: 08/31/22 @0730 Pre operative Diagnosis: with Postmenopausal bleeding simple hyperplasia without atypia JHON-2 Post operative Diagnosis: same Name of the Procedure: ~Total laparoscopic hysterectomy with bilateral salpingo- oophorectomy and cystoscopy Surgeon: SAILAJA DOBSON Numberer And Wirer: Anesthesia: General ETA Specimens:Uterus cervix fallopian tubes and ovaries EBL: 100 mL Complications: None Indication for the procedure: This 56-year-old presented with a history of postmenopausal bleeding she underwent an endometrial biopsy that showed simple hyperplasia without atypia. She had a Pap smear which was abnormal and we did a colposcopy which showed JHON- 2. Risks, benefits and alternatives to the procedure were discussed, and informed consent was obtained. Description of procedure: The patient was brought to the operating room. The patient was placed under general anesthesia by our anesthesia colleagues. A time out was performed. The patient was positioned in dorsal lithotomy with the use of Yellowfin stirrups. A weighted speculum was placed in the vagina. A single toothed tenaculum was placed on the anterior lip of the cervix. The uterus sounded to 10 cm. A Wendie uterine manipulator was then placed into the uterine cavity. A Laboy catheter was placed inside the urinary bladder. An supraumbilical incision was made into a previous incision with a knife and a 5 mm trocar using direct visualization was introduced into the peritoneal c avity, which was confirmed with an opening pressure of 8 mm Hg.The abdomen was then insufflated to a pressure of 15 mm Hg with CO2 gas.The 5 mm laparoscopic trochar was then introduced through this incision after the Veress needle was removed.The camera was introduced into the abdomen, confirming intraperitoneal placement and lack of operative injury to the stomach, bowel, vessels or omentum. Two additional 5 mm port sites were placed in the right and left lateral lower quadrants under direct visualization. A 12 mm varies trocar was placed in the left upper quadrant under direct visualization. The Uterus tubes and ovaries were all inspected. Uterus was noted to be globular appearing both ovaries appear to be normal and fallopian tubes appeared to be normal. There is a large amount of redundant bowel. The patient was placed in steep Trendelenburg position. The ureters were visualized on the pelvic sidewalls. The uterus was noted to be clear posteriorly. Using the LigaSure and a grasper I started on the right side. The infundibulopelvic ligament was cauterized and incised carried down to the round ligament. The round ligament was cauterized and incised and anterior posterior leaves of the broad ligament were and the posterior leaf of the broad ligament was cauterized and incised to just above the uterine artery and the anterior leaf of the broad ligament was incised and cauterized to just above the uterine artery on the right side.In similar fashion the left side was then approached. The infundibulopelvic ligament on the left side was cauterized and incised carried down to the round ligament the round ligament was cauterized and incised. The anterior and posterior leaves of the broad ligament on the left side were the posterior leaf of the broad ligament on the left side was cauterized and incised. The anterior leaf of the broad ligament on the left side was cauterized and incised and carried around anteriorly to the vesicouterine fascia which was cauterized and incised using the LigaSure. The bladder flap was then created. We then insufflated the vaginal occluder on the Wendie manipulator.The vaginal cuff was then entered into using electrocautery and we incised and cauterized circumferentially to remove the cervix from the vagina. At the uterine arteries, we cauterized and incised those with the LigaSure for excellent hemostasis.Once the uterus was free from the vaginal cuff it was removed from the pelvic cavity and left in the vagina to help maintain pneumoperitoneum. The vaginal cuff was then reapproximated using V-locking Endo-suture. Once the vaginal cuff was reapproximated the uterus was removed from the vagina and we maintain pneumoperitoneum knowing that we closed the cuff entirely. The pressure was then brought down to 6 and biopsy sites were all hemostatic. We then paid attention to the perineum remove the Laboy catheter that had been placed preoperatively and did a cystoscopy. The bladder was noted to be intact and both ureters were seen with urine aggressing from them. The cystoscope was removed and the Laboy catheter was placed back inside the bladder. The pelvis was irrigated and noted to be hemostatic. The ports were pulled under direct visualization. The gas was released. The incisions were closed with 4-0 Monocryl and sealed with Dermabond. The pelvic instruments were also removed. The patient was brought to the recovery room in stable condition after awakening from general anesthesia..All of my counts were correct x2. EBL was 100 cc fluid was 1500 cc and urine output was 100 cc. Vitals - Labs Vital Signs - I&O Vital Signs Date Time Temp Pulse Resp B/P (MAP) Pulse Ox O2 Delivery O2 Flow Rate FiO2 08/31/22 07:05 Room Air 08/31/22 06:00 36.7 71 20 158/97 (117) 91 Room Air Labs Laboratory Tests 08/31/22 06:25: White Blood Count 10.1, Red Blood Count 4.59, Hemoglobin 11.3L, Hematocrit 39, Mean Corpuscular Volume 85, Mean Corpuscular Hemoglobin 25, Mean Corpuscular Hemoglobin Concent 29L, Red Cell Distribution Width 15.9H, Platelet Count 414H, Mean Platelet Volume 9.4, Immature Granulocyte % (Auto) 0, Neutrophils (%) (Auto) 58, Lymphocytes (%) (Auto) 29, Monocytes (%) (Auto) 8, Eosinophils (%) (Auto) 5, Basophils (%) (Auto) 1, Neutrophils # (Auto) 5.8, Lymphocytes # (Auto) 2.9, Monocytes # (Auto) 0.8, Eosinophils # (Auto) 0.5H, Basophils # (Auto) 0.1, Immature Granulocyte # (Auto) 0.0 SAILAJA DOBSON DO Aug 31, 2022 09:50
--- NOTE | 2022-08-31 09:57 | Anesthesia-General Post-Op ---
General Patient Condition Mental Status/LOC: Same as Preop Cardiovascular: Satisfactory Nausea/Vomiting: Absent Respiratory: Satisfactory Pain: Controlled Complications: Absent Post Op Complications Complications None Follow Up Care/Instructions Patient Instructions None needed. Anesthesia/Patient Condition Patient Condition Patient is awake in PACU and doing well with no complaints, stable vital signs, no apparent adverse anesthesia problems. No complications reported per nursing. DENISE AGUIRRE DO Aug 31, 2022 09:57
[2022-08-31] MEDS ORDERED: HYDROmorphone 2 MG/ML VIAL (DILAUDID) IV ONE (10:00)
[2022-08-31] MEDS ORDERED: morphine INJ 10 MG/ML 1ML (SYR OR VIAL) IVP ONE (10:00)
[2022-08-31] MEDS ORDERED: ONDANSETRON 4 MG/2 ML (SDV) Z0FRAN IVP PRN (10:00)
[2022-08-31] MEDS ORDERED: IBUP-844 PO (16:52)
[2022-08-31] MEDS ORDERED: DOCU100C37 PO (16:52)
[2022-08-31] MEDS ORDERED: HYDR-34 PO (16:59)
--- NOTE | 2022-08-31 17:07 | Discharge Summary ---
Discharge Summary Hospital Course Problems Reviewed?: Yes Hospital Course Date of Admission: Admission Diagnosis : Family Physician/Provider: Alfonso Flores MD Date of Discharge: 08/31/22 Discharge Diagnosis: [ ]s/p TLH BSO cystoscopy Hospital Course: Patient was admitted for TLHBSO secondary to PMB, simple hyperplasia and JHON 2 She did well intraoperatively and was taken for extended monitoring. Her oakley was removed and she was able to tolerate her diet and urinate on her own. She was discharged to home 12hr from the start of her surgery with pain medications and instructions. Labs and Pending Lab Test: Laboratory Tests 08/31/22 06:25: White Blood Count 10.1, Red Blood Count 4.59, Hemoglobin 11.3L, Hematocrit 39, Mean Corpuscular Volume 85, Mean Corpuscular Hemoglobin 25, Mean Corpuscular Hemoglobin Concent 29L, Red Cell Distribution Width 15.9H, Platelet Count 414H, Mean Platelet Volume 9.4, Immature Granulocyte % (Auto) 0, Neutrophils (%) (Auto) 58, Lymphocytes (%) (Auto) 29, Monocytes (%) (Auto) 8, Eosinophils (%) (Auto) 5, Basophils (%) (Auto) 1, Neutrophils # (Auto) 5.8, Lymphocytes # (Auto) 2.9, Monocytes # (Auto) 0.8, Eosinophils # (Auto) 0.5H, Basophils # (Auto) 0.1, Immature Granulocyte # (Auto) 0.0 Home Meds Active Docusate Sodium 100 Mg Capsule 100 Mg PO BID take 1 tablet twice a day Ibu (Ibuprofen) 600 Mg Tablet 600 Mg PO Q6H take 1 tablet every 6hrs as needed for pain Nitroglycerin 0.4 Mg Tab.subl 0.4 Mg SL UD PRN Ventolin Hfa (Albuterol Sulfate) 1 Puff Puff 2 Puff IH Q4H 1 PUFF = 90 MCG Reported Metoprolol Succinate 50 Mg Tab.er.24h 50 Mg PO BID Losartan Potassium 100 Mg Tablet 100 Mg PO DAILY Plavix (Clopidogrel Bisulfate) 75 Mg Tablet 75 Mg PO DAILY Atorvastatin Calcium 80 Mg Tablet 80 Mg PO HS Aspirin 81 Mg Tab.chew 81 Mg PO UD Activity: Activity as Tolerated Driving Instructions: No Driving for 1 Week NO SMOKING: NO SMOKING Nothing Inside Vagina: No Douching, No [place], No Tampons Discharge Diet: Regular Diet Symptoms to Report to : Appetite Changes, Pain Increased, Fever Over 101 Degrees F, Pain/Pressure in Chest, Vaginal Bleeding Increase, Vaginal Discharge Foul, Nausea/Vomiting For Any Problems or Questions: Contact Your Physician Infection Signs and Symptoms: Increased Redness, Foul Odor of Wound, Increased Drainage, Skin Itchy or Has a Rash, Increased Swelling, Temperature Above 101 F Operative Area Clean and Dry: Do Not Remove Bandage, Keep Incision Clean/Dry Stitches/Rakel/Dermabond: Dermabond Bathing Instructions: Shower Discharge Physical Examination Allergies: Coded Allergies: amoxicillin (Verified Allergy, Unknown, EARS/FACE EDEMA, 08/04/22) clavulanic acid (Verified Allergy, Unknown, EARS/FACE SWELL, 08/04/22) lisinopril (Verified Adverse Reaction, Unknown, COUGH, 08/04/22) Vitals & I&Os Vital Signs Date Time Temp Pulse Resp B/P (MAP) Pulse Ox O2 Delivery O2 Flow Rate FiO2 08/31/22 14:55 Room Air 08/31/22 14:45 36.8 83 20 128/64 (85) 92 08/31/22 10:45 2.00 General Appearance: No Apparent Distress, WD/WN, Obese HEENT: PERRL/EOMI Respiratory: Chest Non Tender, Lungs Clear, Normal Breath Sounds Cardiovascular: Regular Rate, Rhythm, No Edema Gastrointestinal: Normal Bowel Sounds, No Organomegaly Extremity: Non Tender, No Pedal Edema Skin: Normal Color, Warm/Dry Neurologic/Psychiatric: Alert, Oriented x3, No Motor/Sensory Deficits, Normal Mood/Affect Discharge Summary Date of Admission Date of Discharge Discharge Date: Aug 31, 2022 Discharge Time: 19:30 Admission Diagnosis PMB simple hyperplasia JHON 2 Discharge Diagnosis (1) Status post laparoscopic hysterectomy Assessment & Plan: Doing well no c/o DC to home f/u 1 week. (2) Simple endometrial hyperplasia Status: Resolved (3) JHON III (cervical intraepithelial neoplasia III) Status: Resolved Supervisory-Addendum Brief Verification & Attestation Participated in pt care: history, MDM, physical Personally performed: exam, history, MDM, supervision of care Care discussed with: other (n/a) Procedures: performed Results interpretation: Verified all documentation I kendra saw and examined this patient SAILAJA DOBSON DO Aug 31, 2022 17:07
[2022-08-31] MEDS ORDERED: IBUPROFEN 600 MG (MOTRIN) TAB PO SCH (18:00)
[2022-08-31] MEDS ORDERED: ENOXAPARIN 40 MG/0.4 ML (LOVENOX) SYR SC SCH ×2 (19:30→21:00)
[2022-09-01] MEDS ORDERED: DOCUSATE SODIUM 100 MG (COLACE) CAP PO SCH (09:00)
[2022-09-01] MEDS ORDERED: IBUPROFEN 600 MG (MOTRIN) TAB PO SCH (09:45)
[2022-09-02] MEDS ORDERED: ENOXAPARIN 40 MG/0.4 ML (LOVENOX) SYR SC SCH (09:00)
== END 2022-08-31 20:08 | disposition home or self-care (01) ==
LOC: SDC 05:56 → WS 10:30 → SDC 20:08
PROVIDERS: ATTEND Obstetrics & Gynecology
DX: D06.9 Carcinoma in situ of cervix, unspecified (principal); N80.03 Adenomyosis of the uterus; N83.8 Other noninflammatory disorders of ovary, fallopian tube and broad ligament; E66.01 Morbid (severe) obesity due to excess calories; G47.33 Obstructive sleep apnea (adult) (pediatric); F17.210 Nicotine dependence, cigarettes, uncomplicated; Z68.42 Body mass index [BMI] 45.0-49.9, adult; Z99.81 Dependence on supplemental oxygen
CPT/HCPCS: 36415; 85025; 86850; 86900; 86901; 87081; 94640; 94664